=== PATIENT | male | born 1950 | race Caucasian/White ===

== ENCOUNTER → 2017-08-09 | Outpatient (CLI) | payer MEDICARE ==
--- NOTE | 2017-08-09 09:11 | RADIOLOGY REPORT (SQ) ---
EXAM DESCRIPTION: HAND BILATERAL 3 VIEWS COMPLETED DATE/TIME: 08/09/2017 8:51 am REASON FOR STUDY: PAIN IN RIGHT HAND/LT HAND COMPARISON: None. NUMBER OF VIEWS: Three views right hand. Three views left hand. LIMITATIONS: None. FINDINGS: Right hand: Normal bone density. Grossly normal carpal alignment. No fracture or bone l esion. No aggressive erosions or bulky osteophytes. Mild ulnar minus variance. Probable old fractu re, slight deformity of the 5th metacarpal. Minimal thumb base carpometacarpal and IP joint osteoart hritic change. No radiopaque foreign body. Left hand: Normal bone density. No fracture or bone lesion. Mild degenerative thumb base changes. No aggressive erosions or bulky osteophytes. Minimal ulnar minus variance. Grossly normal carpal a lignment. OTHER: No other findings. IMPRESSION: Degenerative appearing changes as above. No acute or suspicious findings. No gross gray dence of inflammatory arthropathy. TECHNICAL DOCUMENTATION: JOB ID: [id number]
== END ==
LOC: OD 08:34
PROVIDERS: ATTEND Family Medicine Geriatric Medicine
DX: M79.641 Pain in right hand (principal); M79.642 Pain in left hand; M19.041 Primary osteoarthritis, right hand

== ENCOUNTER → 2017-08-09 | Outpatient (CLI) | payer MEDICARE ==
[2017-08-09 12:30] LABS: ABSOLUTE EOSINOPHILS # (AUTO) 0.1 10^3/uL (0.0-0.6); ABSOLUTE LYMPHOCYTES (AUTO) 1.6 10^3/uL (0.5-4.7); ABSOLUTE MONOCYTES (AUTO) 0.6 10^3/uL (0.1-1.4); ABSOLUTE NEUT (AUTO) 5.4 10^3/uL (1.7-8.2); BASOPHILS % (AUTO) 0.6 % (0-2); EOSINOPHILS % (AUTO) 1.1 % (0-6); HEMATOCRIT 40.3 % (37.9-51.0); HEMOGLOBIN 13.6 g/dL (13.5-17.0); HGB HCT DIFFERENCE 0.5; LYMPHOCYTES % (AUTO) 20.7 % (13-45); MEAN CORPUSCULAR HEMOGLOBIN 29.6 pg (27.0-33.4); MEAN CORPUSCULAR HGB CONC 33.8 g/dL (32.0-36.0); MEAN CORPUSCULAR VOLUME 88 fl (80-97); MONOCYTES % (AUTO) 8.4 % (3-13); RED BLOOD COUNT 4.61 10^6/uL (4.35-5.55); RED CELL DISTRIBUTION WIDTH 14.6 % (11.5-14.0); SEGMENTED NEUTROPHILS % (AUTO) 69.2 % (42-78); WHITE BLOOD COUNT 7.7 10^3/uL (4.0-10.5)
--- NOTE | 2017-08-09 12:48 | RADIOLOGY REPORT (SQ) ---
EXAM DESCRIPTION: CHEST PA/LATERAL COMPLETED DATE/TIME: 08/09/2017 12:17 pm REASON FOR STUDY: PRE-OP COMPARISON: Two-view chest 09/16/2015 EXAM PARAMETERS: NUMBER OF VIEWS: two views TECHNIQUE: Digital Frontal and Lateral radiographic views of the chest acquired. RADIATION DOSE: NA LIMITATIONS: none FINDINGS: LUNGS AND PLEURA: Minimal bandlike atelectasis left lateral costophrenic sulcus. No fluffy alveolar infiltrates worrisome for edema or pneumonia. No pleural effusion. No pneumothorax. MEDIASTINUM AND HILAR STRUCTURES: No masses or contour abnormalities. HEART AND VASCULAR STRUCTURES: Heart normal size. No evidence for failure. BONES: No acute findings. HARDWARE: None in the chest. OTHER: No other significant finding. IMPRESSION: NO SIGNIFICANT RADIOGRAPHIC FINDING IN THE CHEST. TECHNICAL DOCUMENTATION: JOB ID: [id number] [employer]- All Rights Reserved
[2017-08-09 13:00] LABS: ALANINE AMINOTRANSFERASE 28 U/L (21-72); ALKALINE PHOSPHATASE 68 U/L (38-126); ANION GAP 10 (5-19); ASPARTATE AMINO TRANSFERASE 16 U/L (17-59); BILIRUBIN,DIRECT 0.5 mg/dL (0.0-0.4); BILIRUBIN,TOTAL 0.7 mg/dL (0.2-1.3); BLOOD UREA NITROGEN 22 mg/dL (7-20); CALCIUM 10.3 mg/dL (8.4-10.2); CARBON DIOXIDE 28 mmol/L (22-30); CHLORIDE 101 mmol/L (98-107); CREATININE RESULT 1.24 mg/dL (0.52-1.25); GLUCOSE 259 mg/dL (75-110); POTASSIUM 4.9 mmol/L (3.6-5.0); SODIUM 139.2 mmol/L (137-145); TOTAL PROTEIN 6.7 g/dL (6.3-8.2)
--- NOTE | 2017-08-10 09:07 | EKG REPORT ---
SEVERITY:- OTHERWISE NORMAL ECG - SINUS RHYTHM LOW VOLTAGE IN FRONTAL LEADS : Confirmed by: Xiomy Cronin MD 10-Aug-2017 09:07:04
== END ==
LOC: OD 11:20
PROVIDERS: ATTEND Surgery
DX: Z01.810 Encounter for preprocedural cardiovascular examination (principal); Z01.811 Encounter for preprocedural respiratory examination; Z01.812 Encounter for preprocedural laboratory examination; Z01.818 Encounter for other preprocedural examination; E66.01 Morbid (severe) obesity due to excess calories; K21.9 Gastro-esophageal reflux disease without esophagitis; E11.9 Type 2 diabetes mellitus without complications; G47.30 Sleep apnea, unspecified; E78.00 Pure hypercholesterolemia, unspecified
CPT/HCPCS: 36415; 71020; 80053; 84443; 85025; 93005; 93010

== ENCOUNTER → 2017-10-03 | Outpatient (CLI) | payer MEDICARE ==
[2017-10-03 10:15] LABS: ABSOLUTE EOSINOPHILS # (AUTO) 0.1 10^3/uL (0.0-0.6); ABSOLUTE LYMPHOCYTES (AUTO) 1.1 10^3/uL (0.5-4.7); ABSOLUTE MONOCYTES (AUTO) 0.5 10^3/uL (0.1-1.4); ABSOLUTE NEUT (AUTO) 3.6 10^3/uL (1.7-8.2); BASOPHILS % (AUTO) 0.5 % (0-2); EOSINOPHILS % (AUTO) 1.4 % (0-6); HEMATOCRIT 40.6 % (37.9-51.0); HEMOGLOBIN 13.3 g/dL (13.5-17.0); HGB HCT DIFFERENCE -0.7; LYMPHOCYTES % (AUTO) 20.5 % (13-45); MEAN CORPUSCULAR HEMOGLOBIN 29.8 pg (27.0-33.4); MEAN CORPUSCULAR HGB CONC 32.9 g/dL (32.0-36.0); MEAN CORPUSCULAR VOLUME 91 fl (80-97); RED BLOOD COUNT 4.47 10^6/uL (4.35-5.55); RED CELL DISTRIBUTION WIDTH 14.8 % (11.5-14.0); SEGMENTED NEUTROPHILS % (AUTO) 68.6 % (42-78); WHITE BLOOD COUNT 5.3 10^3/uL (4.0-10.5)
[2017-10-03 10:34] LABS: APPEARANCE,URINE CLOUDY; BILIRUBIN,URINE NEGATIVE (NEGATIVE); GLUCOSE, URINE >=500 mg/dL (NEGATIVE); KETONES,URINE NEGATIVE (NEGATIVE); LEUKOCYTE ESTERASE,URINE LARGE (NEGATIVE); NITRITE,URINE NEGATIVE (NEGATIVE); PROTEIN,URINE NEGATIVE (NEGATIVE); URINE SPECIFIC GRAVITY 1.017; UROBILINOGEN,URINE NEGATIVE mg/dL (<2.0)
--- NOTE | 2017-10-03 10:36 | RADIOLOGY REPORT (SQ) ---
EXAM DESCRIPTION: U/S ABDOMEN COMPLETE W/O DOP COMPLETED DATE/TIME: 10/03/2017 9:55 am REASON FOR STUDY: K76.0 FATTY (CHANGE OF) LIVER, NOT ELSEWHERE CLASSIFIED N18.3CHRONIC KIDNEY K76.0 FATTY (CHANGE OF) LIVER, NOT ELSEWHERE CLASSIFIED N18.3 CHRONIC KIDNEY DISEASE, STAGE 3 (MODERATE) COMPARISON: 02/07/2012 TECHNIQUE: Dynamic and static grayscale images acquired of the abdomen and recorded on PACS. Additio nal selected color Doppler and spectral images recorded. LIMITATIONS: None. FINDINGS: PANCREAS: The head and body of the pancreas were normal. The tail was obscured by gas. LIVER: 17.9 cm. Slightly increased echogenicity. LIVER VASCULATURE: Normal directional flow of the main portal vein and hepatic veins. GALLBLADDER: Surgically absent. ULTRASOUND-DETECTED VALADEZ'S SIGN: Not applicable. INTRAHEPATIC DUCTS AND COMMON DUCT: CBD and intrahepatic ducts normal caliber. No filling defects. INFERIOR VENA CAVA: Normal flow. AORTA: No aneurysm. RIGHT KIDNEY: Normal size, 12.3 cm. Normal echogenicity. No solid or suspicious masses. No hyd ronephrosis. No calcifications. LEFT KIDNEY: Normal size, 11.6 cm. Normal echogenicity. No solid or suspicious masses. The jc al pelvis is slightly prominent at 12 mm, but there is no true hydronephrosis. No calcifications. SPLEEN: Splenomegaly at 14.9 cm. No masses. PERITONEAL AND PLEURAL SPACES: No ascites or effusions. OTHER: No other significant finding. IMPRESSION: Fatty infiltration of the liver with mild splenomegaly. TECHNICAL DOCUMENTATION: JOB ID: [id number] [employer]- All Rights Reserved
[2017-10-03 10:43] LABS: ALANINE AMINOTRANSFERASE 27 U/L (21-72); ALBUMIN 3.9 g/dL (3.5-5.0); ALKALINE PHOSPHATASE 53 U/L (38-126); ANION GAP 11 (5-19); ASPARTATE AMINO TRANSFERASE 14 U/L (17-59); BILIRUBIN,DIRECT 0.3 mg/dL (0.0-0.4); BILIRUBIN,TOTAL 0.6 mg/dL (0.2-1.3); BLOOD UREA NITROGEN 27 mg/dL (7-20); CALCIUM 9.5 mg/dL (8.4-10.2); CARBON DIOXIDE 30 mmol/L (22-30); CHLORIDE 102 mmol/L (98-107); CREATININE RESULT 1.17 mg/dL (0.52-1.25); GLUCOSE 207 mg/dL (75-110); POTASSIUM 4.6 mmol/L (3.6-5.0); SODIUM 142.9 mmol/L (137-145); TOTAL PROTEIN 6.2 g/dL (6.3-8.2)
[2017-10-03 10:57] LABS: URINE CREATININE 110.2 mg/dL (22-328); URINE PROTEIN 15.2 mg/dL (<12)
== END ==
LOC: RAD 09:06
PROVIDERS: ATTEND Internal Medicine Nephrology
DX: E11.22 Type 2 diabetes mellitus with diabetic chronic kidney disease (principal); I12.9 Hypertensive chronic kidney disease with stage 1 through stage 4 chronic kidney disease, or unspecified chronic kidney disease; N18.3 Chronic kidney disease, stage 3 (moderate); K76.0 Fatty (change of) liver, not elsewhere classified; N39.0 Urinary tract infection, site not specified
CPT/HCPCS: 36415; 76700; 80053; 81001; 82570; 84156; 85025; 87086; 87088

== ENCOUNTER → 2017-11-15 | Outpatient (CLI) | payer MEDICARE ==
--- NOTE | 2017-11-15 13:33 | EKG REPORT ---
SEVERITY:- ABNORMAL ECG - SINUS RHYTHM FIRST DEGREE AV BLOCK NONSPECIFIC INTRAVENTRICULAR CONDUCTION DELAY : Confirmed by: Nino Galloway MD 15-Nov-2017 13:32:36
[2017-11-15 13:34] LABS: ABSOLUTE EOSINOPHILS # (AUTO) 0.2 10^3/uL (0.0-0.6); ABSOLUTE LYMPHOCYTES (AUTO) 1.4 10^3/uL (0.5-4.7); ABSOLUTE MONOCYTES (AUTO) 0.5 10^3/uL (0.1-1.4); ABSOLUTE NEUT (AUTO) 3.9 10^3/uL (1.7-8.2); BASOPHILS % (AUTO) 0.5 % (0-2); EOSINOPHILS % (AUTO) 2.6 % (0-6); HEMATOCRIT 40.7 % (37.9-51.0); HEMOGLOBIN 13.5 g/dL (13.5-17.0); LYMPHOCYTES % (AUTO) 23.7 % (13-45); MEAN CORPUSCULAR HEMOGLOBIN 29.5 pg (27.0-33.4); MEAN CORPUSCULAR HGB CONC 33.2 g/dL (32.0-36.0); MEAN CORPUSCULAR VOLUME 89 fl (80-97); MONOCYTES % (AUTO) 8.9 % (3-13); PLATELET COUNT 307 10^3/uL (150-450); RED BLOOD COUNT 4.58 10^6/uL (4.35-5.55); RED CELL DISTRIBUTION WIDTH 13.9 % (11.5-14.0); SEGMENTED NEUTROPHILS % (AUTO) 64.3 % (42-78); TOTAL CELLS COUNTED % (AUTO) 100 %; WHITE BLOOD COUNT 6.1 10^3/uL (4.0-10.5)
[2017-11-15 14:04] LABS: ALANINE AMINOTRANSFERASE 21 U/L (21-72); ALBUMIN 4.1 g/dL (3.5-5.0); ALKALINE PHOSPHATASE 59 U/L (38-126); ANION GAP 11 (5-19); ASPARTATE AMINO TRANSFERASE 14 U/L (17-59); BILIRUBIN,DIRECT 0.2 mg/dL (0.0-0.4); BILIRUBIN,TOTAL 0.3 mg/dL (0.2-1.3); BLOOD UREA NITROGEN 30 mg/dL (7-20); CALCIUM 10.6 mg/dL (8.4-10.2); CARBON DIOXIDE 32 mmol/L (22-30); CHLORIDE 102 mmol/L (98-107); GLUCOSE 79 mg/dL (75-110); POTASSIUM 4.7 mmol/L (3.6-5.0); SODIUM 145.1 mmol/L (137-145); TOTAL PROTEIN 6.6 g/dL (6.3-8.2)
== END ==
LOC: OD 12:23
PROVIDERS: ATTEND Surgery
DX: Z01.810 Encounter for preprocedural cardiovascular examination (principal); Z01.811 Encounter for preprocedural respiratory examination; Z01.812 Encounter for preprocedural laboratory examination; Z01.818 Encounter for other preprocedural examination; E66.01 Morbid (severe) obesity due to excess calories
CPT/HCPCS: 36415; 80053; 85025; 93005; 93010

== ENCOUNTER → 2017-11-21 | Outpatient (CLI) | payer MEDICARE ==
[2017-11-21 17:38] LABS: ANION GAP 15 (5-19); BLOOD UREA NITROGEN 41 mg/dL (7-20); CALCIUM 9.8 mg/dL (8.4-10.2); CARBON DIOXIDE 28 mmol/L (22-30); CHLORIDE 97 mmol/L (98-107); GLUCOSE 183 mg/dL (75-110); POTASSIUM 3.9 mmol/L (3.6-5.0)
== END ==
LOC: OD 16:47
PROVIDERS: ATTEND Family Medicine Geriatric Medicine
DX: E83.52 Hypercalcemia (principal); Z79.899 Other long term (current) drug therapy
CPT/HCPCS: 36415; 80048; 83970

== ENCOUNTER → 2017-12-13 | Outpatient (CLI) | payer MEDICARE, OTHER ==
[2017-12-13 12:00] LABS: AMORPHOUS SEDIMENT,URINE TRACE /HPF; APPEARANCE,URINE CLOUDY; BILIRUBIN,URINE NEGATIVE (NEGATIVE); COLOR,URINE YELLOW; GLUCOSE, URINE 50 mg/dL (NEGATIVE); KETONES,URINE TRACE mg/dL (NEGATIVE); LEUKOCYTE ESTERASE,URINE NEGATIVE (NEGATIVE); NITRITE,URINE NEGATIVE (NEGATIVE); PROTEIN,URINE 30 mg/dL (NEGATIVE); URINE SPECIFIC GRAVITY 1.014; UROBILINOGEN,URINE NEGATIVE mg/dL (<2.0)
[2017-12-13 12:23] LABS: ANION GAP 13 (5-19); BLOOD UREA NITROGEN 15 mg/dL (7-20); CALCIUM 10.3 mg/dL (8.4-10.2); CARBON DIOXIDE 32 mmol/L (22-30); CHLORIDE 99 mmol/L (98-107); GLUCOSE 100 mg/dL (75-110); POTASSIUM 4.6 mmol/L (3.6-5.0)
== END ==
LOC: OD 11:08
PROVIDERS: ATTEND Internal Medicine Nephrology
DX: I12.9 Hypertensive chronic kidney disease with stage 1 through stage 4 chronic kidney disease, or unspecified chronic kidney disease (principal); N18.3 Chronic kidney disease, stage 3 (moderate); E11.9 Type 2 diabetes mellitus without complications; R60.9 Edema, unspecified
CPT/HCPCS: 36415; 80048; 81001

== ENCOUNTER → 2018-02-23 | Outpatient (CLI) | payer MEDICARE, OTHER ==
[2018-02-23 11:15] LABS: ANION GAP 10 (5-19); BLOOD UREA NITROGEN 19 mg/dL (7-20); CALCIUM 9.7 mg/dL (8.4-10.2); CARBON DIOXIDE 33 mmol/L (22-30); CHLORIDE 103 mmol/L (98-107); GLUCOSE 160 mg/dL (75-110); POTASSIUM 4.6 mmol/L (3.6-5.0); SODIUM 145.6 mmol/L (137-145)
[2018-02-23 11:16] LABS: ABSOLUTE EOSINOPHILS # (AUTO) 0.1 10^3/uL (0.0-0.6); ABSOLUTE LYMPHOCYTES (AUTO) 1.7 10^3/uL (0.5-4.7); ABSOLUTE MONOCYTES (AUTO) 0.6 10^3/uL (0.1-1.4); ABSOLUTE NEUT (AUTO) 3.4 10^3/uL (1.7-8.2); BASOPHILS % (AUTO) 0.6 % (0-2); EOSINOPHILS % (AUTO) 1.7 % (0-6); HEMOGLOBIN 12.8 g/dL (13.5-17.0); LYMPHOCYTES % (AUTO) 29.5 % (13-45); MEAN CORPUSCULAR HEMOGLOBIN 29.7 pg (27.0-33.4); MEAN CORPUSCULAR HGB CONC 32.7 g/dL (32.0-36.0); MEAN CORPUSCULAR VOLUME 91 fl (80-97); MONOCYTES % (AUTO) 9.6 % (3-13); PLATELET COUNT 224 10^3/uL (150-450); SEGMENTED NEUTROPHILS % (AUTO) 58.6 % (42-78); TOTAL CELLS COUNTED % (AUTO) 100 %; WHITE BLOOD COUNT 5.7 10^3/uL (4.0-10.5)
== END ==
LOC: OD 10:01
PROVIDERS: ATTEND Family Medicine Geriatric Medicine
DX: E11.21 Type 2 diabetes mellitus with diabetic nephropathy (principal); N40.1 Benign prostatic hyperplasia with lower urinary tract symptoms; R51 Headache
CPT/HCPCS: 36415; 80048; 84153; 85025

== ENCOUNTER → 2018-03-22 | Outpatient (CLI) | payer MEDICARE, OTHER ==
[2018-03-22 09:21] LABS: HEMATOCRIT 39.2 % (37.9-51.0); HEMOGLOBIN 12.9 g/dL (13.5-17.0); MEAN CORPUSCULAR HEMOGLOBIN 29.6 pg (27.0-33.4); MEAN CORPUSCULAR VOLUME 90 fl (80-97); PLATELET COUNT 256 10^3/uL (150-450); RED BLOOD COUNT 4.38 10^6/uL (4.35-5.55); RED CELL DISTRIBUTION WIDTH 13.9 % (11.5-14.0); WHITE BLOOD COUNT 5.1 10^3/uL (4.0-10.5)
[2018-03-22 09:37] LABS: APPEARANCE,URINE CLEAR; BILIRUBIN,URINE NEGATIVE (NEGATIVE); COLOR,URINE YELLOW; GLUCOSE, URINE NEGATIVE (NEGATIVE); KETONES,URINE NEGATIVE (NEGATIVE); LEUKOCYTE ESTERASE,URINE NEGATIVE (NEGATIVE); NITRITE,URINE NEGATIVE (NEGATIVE); PROTEIN,URINE NEGATIVE (NEGATIVE); URINE SPECIFIC GRAVITY 1.018; UROBILINOGEN,URINE NEGATIVE mg/dL (<2.0)
[2018-03-22 09:49] LABS: ANION GAP 9 (5-19); BLOOD UREA NITROGEN 23 mg/dL (7-20); CALCIUM 9.6 mg/dL (8.4-10.2); CARBON DIOXIDE 31 mmol/L (22-30); CHLORIDE 105 mmol/L (98-107); GLUCOSE 158 mg/dL (75-110); POTASSIUM 4.5 mmol/L (3.6-5.0); SODIUM 144.5 mmol/L (137-145)
[2018-03-22 09:50] LABS: UR PRO/CREAT RATIO RESULT 0.1 mg/mg (0.0-0.2); URINE CREATININE 122.2 mg/dL (22-328); URINE PROTEIN 9.3 mg/dL (<12)
== END ==
LOC: OD 08:42
PROVIDERS: ATTEND Internal Medicine Nephrology
DX: I12.9 Hypertensive chronic kidney disease with stage 1 through stage 4 chronic kidney disease, or unspecified chronic kidney disease (principal); N18.2 Chronic kidney disease, stage 2 (mild); R80.9 Proteinuria, unspecified; E11.9 Type 2 diabetes mellitus without complications
CPT/HCPCS: 36415; 80048; 81001; 82570; 83735; 84156; 85027

== ENCOUNTER → 2018-05-24 | Outpatient (CLI) | payer MEDICARE, OTHER ==
[2018-05-24 09:37] LABS: ABSOLUTE EOSINOPHILS # (AUTO) 0.1 10^3/uL (0.0-0.6); ABSOLUTE LYMPHOCYTES (AUTO) 1.5 10^3/uL (0.5-4.7); ABSOLUTE MONOCYTES (AUTO) 0.5 10^3/uL (0.1-1.4); ABSOLUTE NEUT (AUTO) 2.8 10^3/uL (1.7-8.2); BASOPHILS % (AUTO) 0.5 % (0-2); EOSINOPHILS % (AUTO) 1.4 % (0-6); HEMATOCRIT 37.2 % (37.9-51.0); HEMOGLOBIN 12.5 g/dL (13.5-17.0); MEAN CORPUSCULAR HEMOGLOBIN 29.6 pg (27.0-33.4); MEAN CORPUSCULAR HGB CONC 33.5 g/dL (32.0-36.0); MEAN CORPUSCULAR VOLUME 88 fl (80-97); MONOCYTES % (AUTO) 9.9 % (3-13); PLATELET COUNT 238 10^3/uL (150-450); RED BLOOD COUNT 4.21 10^6/uL (4.35-5.55); RED CELL DISTRIBUTION WIDTH 13.5 % (11.5-14.0); SEGMENTED NEUTROPHILS % (AUTO) 57.2 % (42-78); TOTAL CELLS COUNTED % (AUTO) 100 %; WHITE BLOOD COUNT 4.8 10^3/uL (4.0-10.5)
[2018-05-24 09:57] LABS: ALANINE AMINOTRANSFERASE 18 U/L (21-72); ANION GAP 9 (5-19); BLOOD UREA NITROGEN 12 mg/dL (7-20); CALCIUM 9.1 mg/dL (8.4-10.2); CARBON DIOXIDE 28 mmol/L (22-30); CHLORIDE 107 mmol/L (98-107); CHOLESTEROL 104.87 mg/dL (0-200); GLUCOSE 160 mg/dL (75-110); POTASSIUM 4.8 mmol/L (3.6-5.0); SODIUM 144.4 mmol/L (137-145); TRIGLYCERIDES 115 mg/dL (<150)
[2018-05-24 10:08] LABS: DIRECT LDL 48 mg/dL (<100)
[2018-05-25 11:40] LABS: CREATININE URINE 109.2 mg/dL (Not Estab.); MICROALBUMIN URINE 13.1 ug/mL (Not Estab.)
== END ==
LOC: OD 08:09
PROVIDERS: ATTEND Family Medicine Geriatric Medicine
DX: E11.21 Type 2 diabetes mellitus with diabetic nephropathy (principal); E78.5 Hyperlipidemia, unspecified; D64.9 Anemia, unspecified; I10 Essential (primary) hypertension; Z79.899 Other long term (current) drug therapy
CPT/HCPCS: 80048; 80061; 82043; 82570; 83036; 84460; 85025

== ENCOUNTER → 2018-06-21 | Outpatient (CLI) | payer MEDICARE, OTHER ==
[2018-06-21 11:22] LABS: HEMATOCRIT 41.1 % (37.9-51.0); HEMOGLOBIN 13.6 g/dL (13.5-17.0); MEAN CORPUSCULAR HEMOGLOBIN 29.3 pg (27.0-33.4); MEAN CORPUSCULAR HGB CONC 33.1 g/dL (32.0-36.0); MEAN CORPUSCULAR VOLUME 88 fl (80-97); PLATELET COUNT 249 10^3/uL (150-450); RED BLOOD COUNT 4.65 10^6/uL (4.35-5.55); RED CELL DISTRIBUTION WIDTH 13.9 % (11.5-14.0); WHITE BLOOD COUNT 5.1 10^3/uL (4.0-10.5)
[2018-06-21 11:29] LABS: ABSOLUTE RETICS # 0.033 10^6/uL (0.028-0.122); RETICULOCYTE COUNT (AUTO) 0.71 % (0.66-2.85)
[2018-06-21 11:41] LABS: IRON 34.1 ug/dL (49-181)
[2018-06-21 11:43] LABS: ANION GAP 13 (5-19); BLOOD UREA NITROGEN 24 mg/dL (7-20); CALCIUM 9.5 mg/dL (8.4-10.2); CARBON DIOXIDE 31 mmol/L (22-30); CHLORIDE 103 mmol/L (98-107); GLUCOSE 60 mg/dL (75-110); POTASSIUM 4.1 mmol/L (3.6-5.0); SODIUM 146.9 mmol/L (137-145)
[2018-06-21 11:51] LABS: APPEARANCE,URINE CLEAR; BILIRUBIN,URINE NEGATIVE (NEGATIVE); COLOR,URINE STRAW; GLUCOSE, URINE NEGATIVE (NEGATIVE); KETONES,URINE NEGATIVE (NEGATIVE); LEUKOCYTE ESTERASE,URINE NEGATIVE (NEGATIVE); NITRITE,URINE NEGATIVE (NEGATIVE); PROTEIN,URINE NEGATIVE (NEGATIVE); URINE SPECIFIC GRAVITY 1.009; UROBILINOGEN,URINE NEGATIVE mg/dL (<2.0)
[2018-06-22 12:39] LABS: CREATININE URINE 28.2 mg/dL (Not Estab.); MICROALBUMIN URINE 5.6 ug/mL (Not Estab.)
[2018-06-22 15:38] LABS: FOLATE HEMOLYSATE 315.4 ng/mL (Not Estab.)
== END ==
LOC: LAB 10:07
PROVIDERS: ATTEND Internal Medicine
DX: E11.22 Type 2 diabetes mellitus with diabetic chronic kidney disease (principal); I12.9 Hypertensive chronic kidney disease with stage 1 through stage 4 chronic kidney disease, or unspecified chronic kidney disease; N18.2 Chronic kidney disease, stage 2 (mild)
CPT/HCPCS: 36415; 80048; 81001; 82043; 82570; 82607; 82668; 82747; 83540; 85027; 85045

== ENCOUNTER → 2018-08-28 | Outpatient (CLI) | payer MEDICARE, OTHER ==
[2018-08-28 12:14] LABS: ANION GAP 7 (5-19); BLOOD UREA NITROGEN 23 mg/dL (7-20); CALCIUM 11.1 mg/dL (8.4-10.2); CARBON DIOXIDE 32 mmol/L (22-30); CHLORIDE 103 mmol/L (98-107); CHOLESTEROL 115.15 mg/dL (0-200); GLUCOSE 167 mg/dL (75-110); POTASSIUM 4.6 mmol/L (3.6-5.0); SODIUM 142.4 mmol/L (137-145); TRIGLYCERIDES 134 mg/dL (<150)
[2018-08-28 12:27] LABS: DIRECT LDL 39 mg/dL (<100)
== END ==
LOC: OD 09:52
PROVIDERS: ATTEND Internal Medicine
DX: E11.9 Type 2 diabetes mellitus without complications (principal); E78.5 Hyperlipidemia, unspecified; N19 Unspecified kidney failure; D64.9 Anemia, unspecified
CPT/HCPCS: 36415; 80048; 80061; 82043; 82570; 83036

== ENCOUNTER → 2018-11-02 | Outpatient (CLI) | payer MEDICARE, OTHER ==
[2018-11-02 08:46] LABS: ABSOLUTE EOSINOPHILS # (AUTO) 0.1 10^3/uL (0.0-0.6); ABSOLUTE LYMPHOCYTES (AUTO) 1.7 10^3/uL (0.5-4.7); ABSOLUTE MONOCYTES (AUTO) 0.4 10^3/uL (0.1-1.4); ABSOLUTE NEUT (AUTO) 2.3 10^3/uL (1.7-8.2); BASOPHILS % (AUTO) 0.6 % (0-2); EOSINOPHILS % (AUTO) 1.8 % (0-6); HEMATOCRIT 38.6 % (37.9-51.0); LYMPHOCYTES % (AUTO) 37.8 % (13-45); MEAN CORPUSCULAR HEMOGLOBIN 30.1 pg (27.0-33.4); MEAN CORPUSCULAR HGB CONC 33.7 g/dL (32.0-36.0); MEAN CORPUSCULAR VOLUME 89 fl (80-97); MONOCYTES % (AUTO) 9.1 % (3-13); PLATELET COUNT 237 10^3/uL (150-450); RED BLOOD COUNT 4.32 10^6/uL (4.35-5.55); RED CELL DISTRIBUTION WIDTH 13.5 % (11.5-14.0); SEGMENTED NEUTROPHILS % (AUTO) 50.7 % (42-78); TOTAL CELLS COUNTED % (AUTO) 100 %; WHITE BLOOD COUNT 4.5 10^3/uL (4.0-10.5)
[2018-11-02 09:08] LABS: ALANINE AMINOTRANSFERASE 13 U/L (21-72); ALBUMIN 3.5 g/dL (3.5-5.0); ALKALINE PHOSPHATASE 50 U/L (38-126); ANION GAP 5 (5-19); ASPARTATE AMINO TRANSFERASE 13 U/L (17-59); BILIRUBIN,DIRECT 0.2 mg/dL (0.0-0.4); BILIRUBIN,TOTAL 0.4 mg/dL (0.2-1.3); BLOOD UREA NITROGEN 19 mg/dL (7-20); CALCIUM 9.6 mg/dL (8.4-10.2); CARBON DIOXIDE 33 mmol/L (22-30); CHLORIDE 106 mmol/L (98-107); CHOLESTEROL 133.06 mg/dL (0-200); GLUCOSE 63 mg/dL (75-110); POTASSIUM 4.3 mmol/L (3.6-5.0); SODIUM 144.1 mmol/L (137-145); TRIGLYCERIDES 87 mg/dL (<150)
[2018-11-02 09:19] LABS: DIRECT LDL 84 mg/dL (<100)
== END ==
LOC: OD 07:57
PROVIDERS: ATTEND Internal Medicine
DX: D64.9 Anemia, unspecified (principal); E11.8 Type 2 diabetes mellitus with unspecified complications; E55.9 Vitamin D deficiency, unspecified; E87.6 Hypokalemia; R10.9 Unspecified abdominal pain; E53.8 Deficiency of other specified B group vitamins; E78.5 Hyperlipidemia, unspecified
CPT/HCPCS: 36415; 80053; 80061; 82140; 82607; 82746; 83036; 84443; 85025

== ENCOUNTER → 2019-03-07 | Outpatient (CLI) | payer MEDICARE, OTHER ==
[2019-03-07 10:14] LABS: ANION GAP 10 (5-19); BLOOD UREA NITROGEN 18 mg/dL (7-20); CALCIUM 10.1 mg/dL (8.4-10.2); CARBON DIOXIDE 30 mmol/L (22-30); CHLORIDE 107 mmol/L (98-107); POTASSIUM 4.2 mmol/L (3.6-5.0); SODIUM 146.6 mmol/L (137-145); TRIGLYCERIDES 87 mg/dL (<150)
[2019-03-07 10:25] LABS: DIRECT LDL 47 mg/dL (<100)
[2019-03-07 10:38] LABS: GLUCOSE 38 mg/dL (75-110)
== END ==
LOC: OD 08:50
PROVIDERS: ATTEND Internal Medicine
DX: E13.9 Other specified diabetes mellitus without complications (principal); E78.5 Hyperlipidemia, unspecified; N19 Unspecified kidney failure
CPT/HCPCS: 36415; 80048; 80061; 83036

== ENCOUNTER → 2019-03-14 | Outpatient (CLI) | payer MEDICARE, OTHER ==
--- NOTE | 2019-03-14 12:42 | RADIOLOGY REPORT (SQ) ---
EXAM DESCRIPTION: ANKLE RIGHT COMPLETE COMPLETED DATE/TIME: 03/14/2019 12:19 pm REASON FOR STUDY: RT ANKLE DJD M25.571 PAIN IN RIGHT ANKLE AND JOINTS OF RIGHT FOOT COMPARISON: None. NUMBER OF VIEWS: Three views. TECHNIQUE: AP, lateral, and oblique radiographic images acquired of the right ankle. LIMITATIONS: None. FINDINGS: MINERALIZATION: Normal. BONES: No acute fracture or dislocation. No worrisome bone lesions. Minimal bony spurring along the posterior edge of the distal tibia at the tibiotalar joint. Tiny plantar and dorsal calcaneal spurs . JOINTS: No effusions. SOFT TISSUES: Anterior ankle soft tissue swelling. No foreign body. OTHER: No other significant finding. IMPRESSION: Anterior ankle soft tissue swelling. No acute bony findings TECHNICAL DOCUMENTATION: JOB ID: [id number] [employer]- All Rights Reserved Reading location - IP/workstation name: [email or web address]
== END ==
LOC: OD 12:10
PROVIDERS: ATTEND Internal Medicine
DX: M25.571 Pain in right ankle and joints of right foot (principal)

== ENCOUNTER → 2019-07-24 | Outpatient (CLI) | payer MEDICARE, OTHER ==
[2019-07-24 10:20] LABS: ALBUMIN 3.9 g/dL (3.5-5.0); ALKALINE PHOSPHATASE 51 U/L (38-126); ANION GAP 8 (5-19); ASPARTATE AMINO TRANSFERASE 12 U/L (17-59); BILIRUBIN,DIRECT 0.2 mg/dL (0.0-0.4); BILIRUBIN,TOTAL 0.5 mg/dL (0.2-1.3); BLOOD UREA NITROGEN 16 mg/dL (7-20); CALCIUM 9.6 mg/dL (8.4-10.2); CARBON DIOXIDE 31 mmol/L (22-30); CHLORIDE 103 mmol/L (98-107); GLUCOSE 137 mg/dL (75-110); POTASSIUM 4.7 mmol/L (3.6-5.0); TOTAL PROTEIN 6.3 g/dL (6.3-8.2)
== END ==
LOC: OD 09:06
PROVIDERS: ATTEND Family Medicine
DX: E11.21 Type 2 diabetes mellitus with diabetic nephropathy (principal)
CPT/HCPCS: 36415; 80053; 83036

== ENCOUNTER 2019-11-28 05:24 | Day surgery (SDC) | payer MEDICARE, OTHER ==
[2019-11-21 10:11] LABS: ABSOLUTE EOSINOPHILS # (AUTO) 0.1 10^3/uL (0.0-0.6); ABSOLUTE LYMPHOCYTES (AUTO) 1.1 10^3/uL (0.5-4.7); ABSOLUTE MONOCYTES (AUTO) 0.4 10^3/uL (0.1-1.4); ABSOLUTE NEUT (AUTO) 2.1 10^3/uL (1.7-8.2); BASOPHILS % (AUTO) 0.7 % (0-2); EOSINOPHILS % (AUTO) 1.5 % (0-6); HEMATOCRIT 39.7 % (37.9-51.0); HEMOGLOBIN 13.5 g/dL (13.5-17.0); LYMPHOCYTES % (AUTO) 30.7 % (13-45); MEAN CORPUSCULAR HEMOGLOBIN 30.1 pg (27.0-33.4); MEAN CORPUSCULAR VOLUME 89 fl (80-97); MONOCYTES % (AUTO) 10.9 % (3-13); PLATELET COUNT 233 10^3/uL (150-450); RED BLOOD COUNT 4.48 10^6/uL (4.35-5.55); RED CELL DISTRIBUTION WIDTH 13.9 % (11.5-14.0); SEGMENTED NEUTROPHILS % (AUTO) 56.2 % (42-78); TOTAL CELLS COUNTED % (AUTO) 100 %; WHITE BLOOD COUNT 3.7 10^3/uL (4.0-10.5)
[2019-11-21 10:47] LABS: ANION GAP 8 (5-19); BLOOD UREA NITROGEN 21 mg/dL (7-20); CALCIUM 9.4 mg/dL (8.4-10.2); CARBON DIOXIDE 33 mmol/L (22-30); CHLORIDE 100 mmol/L (98-107); GLUCOSE 144 mg/dL (75-110); POTASSIUM 5.2 mmol/L (3.6-5.0)
[~2019-11-28 05:24] MED LIST: CEFAZOLIN SODIUM 2 GM in DEXTROSE 5%-WATER 100 ML IV PRN; NORMAL SALINE 1000 ML 1,000 ML IV PRN
[2019-11-28] MEDS ORDERED: MIDAZOLAM 2 MG/2 ML INJ ONE (06:52)
[2019-11-28] MEDS ORDERED: HYDROMORPHONE HCL INJ/PF 2 MG/ML AMPULE ONE (06:52)
[2019-11-28] MEDS ORDERED: FENTANYL CITRATE INJ/PF 100 MCG/2 ML AMPUL ONE (06:52)
[2019-11-28] MEDS ORDERED: PROPOFOL INJ 200 MG/20 ML VIAL IV ONE (06:53)
[2019-11-28] MEDS ORDERED: DIPHENHYDRAMINE HCL 50 MG/ML VIAL IV PRN (06:59)
[2019-11-28] MEDS ORDERED: PROMETHAZINE HCL INJ 25 MG/1 ML VIAL IV PRN ×2 (06:59)
[2019-11-28] MEDS ORDERED: MEPERIDINE HCL/PF INJ 25 MG/1 ML DISP.SYRIN IV PRN (06:59)
[2019-11-28] MEDS ORDERED: FENTANYL CITRATE INJ/PF 100 MCG/2 ML AMPUL IV PRN ×3 (06:59)
[2019-11-28] MEDS ORDERED: CEFAZOLIN INJ 1 GM VIAL ONE (11:11)
[2019-11-28] MEDS ORDERED: NITROGLYCERIN 2% OINTMENT 1 GM PACKET TP ONE (11:15)
--- NOTE | 2019-11-28 12:11 | Operative Report ---
Operative Report DATE OF SURGERY: 11/28/19 PREOPERATIVE DIAGNOSIS: Panniculitis POSTOPERATIVE DIAGNOSIS: 1 panniculitis. 2 diastases recti OPERATION: 1 panniculectomy. 2 repair of diastases recti SURGEON: WILEY ARORA ANESTHESIA: GA TISSUE REMOVED OR ALTERED: Abdominal pannus weight 7 pounds 8 ounces ESTIMATED BLOOD LOSS: 100 cc INTRAOPERATIVE FINDINGS: Diastases recti with asymmetric pull to right side PROCEDURE: Indication: The patient is a 68-year-old male who was referred by Dr. Kasper for consultation for panniculectomy. The patient was status post gastric sleeve on 11/29/2017 and reports to have lost 92 pounds since surgery. He reports that his weight has been stable for greater than 1 year. He presented with complaints of occasional persistent rashes under his abdominal pannus which he treated with prescription topical ointment and subsequently with oral antibiotics; he also has a history of chronic problem with UTIs as the pannus hung over his over his genital area. He has required multiple courses of antibiotics for these recurrent UTIs. he states that he has to shower 3-4 times a day to keep the area clean. His medical history was significant for a previous gastric surgery in 1989 for gastric ulcers and a cholecystectomy. He denied smoking. Procedure: Prior to bringing the patient to the operating room and the patient in the upright position his midline was marked, he was then placed in the supine position and the planned lower abdominal incision marked. Once markings been completed the patient was brought to the operating room placed in the supine position and general anesthesia induced. After induction of general anesthesia the patient's torso was prepped with Betadine and draped in a sterile fashion. Initially incision was made along the lower abdominal marking this was taken down through the skin into the underlying subcutaneous tissue, using blunt dissection and electrocautery the subcutaneous tissue, Reginaldo's fascia, the deeper fatty layer were all divided to expose the rectus fascia. Once visualized dissection was begun superiorly to the level of the umbilicus. The umbilical skin was incised and the umbilical stalk carefully dissected to maintain adequate tissue for maintenance of blood supply. Dissection then continued to the costal margin laterally and the xiphoid medially, throughout this dissection bleeding points were electrocauterized. Once the abdominal flap was raised examination of the rectus fascia showed that there was an obvious weakness vicente trally below the umbilicus and that it had been apparently been pulled to the right side giving the patient's abdominal contour an asymmetric appearance. To correct this and repair the diastasis repair of the rectus fascia was undertaken. this was done using using interrupted 0 Ethibond sutures from the pubic symphysis to the xiphoid followed by a running suture of as a second laye. Once completed the patient was placed in a slightly flexed position the skin pulled inferiorly and marked. Excess skin and fatty tissue excised total weight of excision was 7 pounds 8 ounces. The incision was then approximated using portillo and approximated with minimal tension. Prior to closing the lower abdominal incision the new position of the umbilicus was marked, skin excised and the umbilicus brought into the operative field the umbilicus appeared viable this was secured using interrupted 3-0 Monocryl in the deep dermal layer and 4-0 Monocryl in the skin in a subcuticular fashion. Prior to closing the lower abdominal incision two 15 mm round Cortez drains were placed through separate suprapubic stab incisions and secured using 2-0 nylon suture. The lower abdominal incision was then closed in layers using 3-0 Monocryl in the deep and deep dermal layer and 4-0 Monocryl in the skin in a subcuticular fashion. Once all incisions were closed the areas were cleaned and dried Dermabond bulky dressing and compression garment placed the patient was then awoken from his general anesthetic without difficulty and brought to the recovery room in stable condition sponge and needle counts were noted to be correct prior to leaving the operating room
--- NOTE | 2019-11-28 12:30 | Discharge Summary ---
Discharge Summary (SDC) - Discharge Final Diagnosis: Panniculitis Diastasis Recti Date of Surgery: 11/28/19 Condition: Fair Referrals: LILIA GONZALEZ MD [Primary Care Provider] - Discharge Diet: As Tolerated Discharge Activity: No Driving, No Lifting Over 10 Pounds, No Lifting/Push/Pulling, Walk Frequently Home Care Assistance: Provided by Family Report the Following to Your Physician Immediately: Fever over 101 Degrees
[2019-11-28] MEDS ORDERED: ONDANSETRON 4 MG TAB.RAPDIS SL PRN (13:01)
[2019-11-28] MEDS ORDERED: OXYCODONE-ACETAMINOPHEN 5-325 MG TABLET ONE (13:10)
[2019-11-28] MEDS ORDERED: OXYCODONE-ACETAMINOPHEN 5-325 MG TABLET PO PRN ×2 (13:28→13:29)
[2019-11-28] MEDS ORDERED: LIDOCAINE 2% INJ-PF (20 MG/ML) 2 ML AMPUL ONE (14:10)
[2019-11-28] MEDS ORDERED: SUCCINYLCHOLINE CHLORIDE INJ 200 MG/10 ML VIAL ONE (14:10)
[2019-11-28] MEDS ORDERED: KETOROLAC TROMETHAMINE 60 MG/2 ML SDV ONE (14:10)
[2019-11-28] MEDS ORDERED: NEOSTIGMINE METHYLSULFATE 10 MG/10 ML VIAL ONE (14:10)
[2019-11-28] MEDS ORDERED: DEXAMETHASONE SOD PHOSPHATE INJ 4 MG/1 ML VIAL ONE (14:10)
[2019-11-28] MEDS ORDERED: ROCURONIUM BROMIDE INJ 50 MG/5 ML VIAL IV ONE (14:10)
[2019-11-28] MEDS ORDERED: GLYCOPYRROLATE 1 MG/5 ML VIAL ONE (14:10)
[2019-11-28] MEDS ORDERED: ONDANSETRON HCL INJ/PF 4 MG/2 ML SDV ONE (14:10)
[2019-11-28 15:04] VITALS: BP 109/58
== END 2019-11-28 14:44 | disposition home or self-care (01) ==
LOC: OROUT 05:24
PROVIDERS: ATTEND Specialist
DX: M79.3 Panniculitis, unspecified (principal); M62.08 Separation of muscle (nontraumatic), other site; Z79.899 Other long term (current) drug therapy; Z79.4 Long term (current) use of insulin; Z79.84 Long term (current) use of oral hypoglycemic drugs
CPT/HCPCS: 36415 ×2; 82962; 84132; 85025; 80048; 00802; 15830; J2250; A9270 ×2; J0690; J3490 ×3; J1100; J1885; J3010; J2710; J1170; J0330; J2405; J7060; J2704; 802

== ENCOUNTER 2019-11-28 21:40 | Observation (INO) | payer MEDICARE, OTHER ==
--- NOTE | 2019-11-28 23:54 | ER Document Report ---
ED Medical Screen (RME) - General Chief Complaint: Post Surgical Bleeding Stated Complaint: BLEEDING Time Seen by Provider: 11/28/19 23:53 Primary Care Provider: LILIA GONZALEZ MD [Primary Care Provider] - Follow up as needed Notes: 68-year-old male presents for postop bleeding that started approximately 4 hours ago. Patient had a panniculectomy done this morning by Dr. Jones. Patient states he is having dizziness with it. Patient also has 2 drains which are full of blood. Active bleeding noted on exam. Exam limited in triage. I have greeted and performed a rapid initial assessment of this patient. A comprehensive ED assessment and evaluation of the patient, analysis of test results and completion of the medical decision making process with be conducted by additional ED providers. TRAVEL OUTSIDE OF THE [place] IN LAST 30 DAYS: No - Related Data Allergies/Adverse Reactions: Niacin Preparations Allergy (Verified 11/28/19 06:41) morphine Adverse Reaction (Verified 11/28/19 06:44) hallucinations; paranoia niacin [Niacin] Adverse Reaction (Verified 11/28/19 06:41) severe flushing Past Medical History - Past Medical History Cardiac Medical History: Reports: Hx Hypercholesterolemia, Hx Hypertension - PO MEDS Denies: Hx Coronary Artery Disease, Hx Heart Attack Pulmonary Medical History: Reports: Hx Asthma - CHILD Denies: Hx Bronchitis, Hx COPD, Hx Pneumonia Neurological Medical History: Denies: Hx Cerebrovascular Accident, Hx Seizures Endocrine Medical History: Reports: Hx Diabetes Mellitus Type 2 GI Medical History: Reports: Hx Gastroesophageal Reflux Disease, Hx Ulcer - DUODENAL. Denies: Hx Hepatitis, Hx Hiatal Hernia Musculoskeltal Medical History: Reports Hx Arthritis Infectious Medical History: Denies: Hx Hepatitis Past Surgical History: Reports: Hx Cholecystectomy, Hx Orthopedic Surgery - Neck. Denies: Hx Open Heart Surgery, Hx Pacemaker - Immunizations Hx Diphtheria, Pertussis, Tetanus Vaccination: No Physical Exam - Vital signs Vitals: Temp Pulse Resp BP Pulse Ox 98.3 F 99 20 123/53 L 97 11/28/19 22:21 11/28/19 22:21 11/28/19 22:21 11/28/19 22:21 11/28/19 22:21 Course - Vital Signs Vital signs: Temp Pulse Resp BP Pulse Ox 98.3 F 99 20 123/53 L 97 11/28/19 22:21 11/28/19 22:21 11/28/19 22:21 11/28/19 22:21 11/28/19 22:21 Doctor's Discharge - Discharge Referrals: LILIA GONZALEZ MD [Primary Care Provider] - Follow up as needed
[2019-11-29] MEDS ORDERED: HYDROCODONE/ACETAMINOPHEN 5-325 MG TABLET PO ONE (00:20)
[2019-11-29 01:41] LABS: INTERNATIONAL RATION (INR) 1.26; PROTHROMBIN TIME 15.9 SEC (11.4-15.4)
[2019-11-29 02:22] LABS: HEMATOCRIT 37.4 % (37.9-51.0); HEMOGLOBIN 11.2 g/dL (13.5-17.0); MEAN CORPUSCULAR HEMOGLOBIN 29.5 pg (27.0-33.4); MEAN CORPUSCULAR HGB CONC 29.9 g/dL (32.0-36.0); PLATELET COUNT 302 10^3/uL (150-450); RED BLOOD COUNT 3.78 10^6/uL (4.35-5.55); RED CELL DISTRIBUTION WIDTH 15.1 % (11.5-14.0)
[2019-11-29 02:33] LABS: ALBUMIN 3.6 g/dL (3.5-5.0); ALKALINE PHOSPHATASE 50 U/L (38-126); ASPARTATE AMINO TRANSFERASE 20 U/L (17-59); BILIRUBIN,TOTAL 0.3 mg/dL (0.2-1.3); BLOOD UREA NITROGEN 43 mg/dL (7-20); CALCIUM 8.1 mg/dL (8.4-10.2); TOTAL PROTEIN 5.8 g/dL (6.3-8.2)
[2019-11-29 02:40] LABS: POTASSIUM 5.8 mmol/L (3.6-5.0)
[2019-11-29 02:41] LABS: CHLORIDE 97 mmol/L (98-107)
[2019-11-29 02:48] LABS: ANION GAP 25 (5-19); CARBON DIOXIDE 11 mmol/L (22-30); GLUCOSE 626 mg/dL (75-110)
[2019-11-29 02:51] LABS: PARTIAL THROMBOPLASTIN TIME 20.7 SEC (23.5-35.8)
[2019-11-29] MEDS ORDERED: NORMAL SALINE 1000 ML 1,000 ML IV ONE (02:54)
[2019-11-29 03:00] LABS: MEAN CORPUSCULAR VOLUME 99 fl (80-97)
[2019-11-29] MEDS ORDERED: INSULIN REG, HUMAN 100 UNIT/ML 3 ML VIAL (PYX) ONE (03:12)
[2019-11-29 03:14] LABS: ABSOLUTE LYMPHOCYTES# (MANUAL) 0.4 10^3/uL (0.5-4.7); ABSOLUTE MONOCYTES # (MANUAL) 2.1 10^3/uL (0.1-1.4); ANISOCYTOSIS SLIGHT; BAND NEUTROPHILS % (MANUAL) 3 % (3-5); BASOPHILS % (MANUAL) 0 % (0-2); EOSINOPHILS % (MANUAL) 0 % (0-6); LYMPHOCYTES % (MANUAL) 2 % (13-45); MONOCYTES % (MANUAL) 11 % (3-13); SEGMENTED NEUTROPHILS % (MAN) 84 % (42-78); TOTAL CELLS COUNTED 100
[2019-11-29 03:15] LABS: PLATELET COMMENT ADEQUATE
[2019-11-29 03:16] LABS: OVALOCYTES SLIGHT
[2019-11-29] MEDS: NORMAL SALINE 100 ML with INSULIN REGULAR, HUMAN 100 UNIT IV PRN ×4 (03:22→11:55)
[2019-11-29] MEDS: ONDANSETRON HCL INJ/PF 4 MG/2 ML SDV IV ONE ×3 (03:22→04:10)
--- NOTE | 2019-11-29 03:47 | RADIOLOGY REPORT (SQ) ---
EXAM DESCRIPTION: XR CHEST 1 VIEW COMPLETED DATE/TME: 11/29/2019 02:54 CLINICAL HISTORY: 68 years, Male, dka COMPARISON: 01/08/2019 chest NUMBER OF VIEWS: 1 TECHNIQUE: Portable chest LIMITATIONS: None. FINDINGS: Low lung volumes. Heart size is normal. Subsegmental atelectasis in the lung bases. No pneumothorax. Post surgical change cervical spine IMPRESSION: Low lung volumes with bibasilar subsegmental atelectasis copyright 2010 [employer]- All Rights Reserved
[2019-11-29] MEDS: FENTANYL CITRATE INJ/PF 100 MCG/2 ML AMPUL IV PRN ×2 (04:01→06:26)
[2019-11-29 04:35] LABS: VENOUS BLOOD BASE EXCESS -18.2 mmol/L; VENOUS BLOOD HCO3 11.6 mmol/L (20-32); VENOUS BLOOD PCO2 43.2 mmHg (35-63)
[2019-11-29 04:36] LABS: VENOUS BLOOD PH 7.05 (7.30-7.42)
--- NOTE | 2019-11-29 05:14 | ER Document Report ---
ED General - General Chief Complaint: Post Surgical Bleeding Stated Complaint: BLEEDING Time Seen by Provider: 11/28/19 23:53 Primary Care Provider: LILIA GONZALEZ MD [Primary Care Provider] - Follow up as needed TRAVEL OUTSIDE OF THE [place] IN LAST 30 DAYS: No - HPI Notes: 68-year-old male with a chief complaint of postop bleeding that started approximately 4 hours prior to arrival here. Patient had a panniculectomy done this morning by Dr. Jones. Patient states he is having dizziness with it. Patient also has 2 drains which are full of blood. We note that the patient had had a previous gastric sleeve procedure and had lost about 90 pounds of weight since procedure. 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 For this reason he underwent a panniculectomy. Patient is an insulin-dependent diabetic and has not taken his insulin the day. He complains of abdominal pain and some nausea but no vomiting. He denies chest pain. He denies fever. - Related Data Allergies/Adverse Reactions: Niacin Preparations Allergy (Verified 11/28/19 06:41) morphine Adverse Reaction (Verified 11/28/19 06:44) hallucinations; paranoia niacin [Niacin] Adverse Reaction (Verified 11/28/19 06:41) severe flushing Past Medical History - General Information source: Patient, Relative - Social History Smoking Status: Never Smoker Family History: Reviewed & Not Pertinent Patient has suicidal ideation: No Patient has homicidal ideation: No - Past Medical History Cardiac Medical History: Reports: Hx Hypercholesterolemia, Hx Hypertension - PO MEDS Denies: Hx Coronary Artery Disease, Hx Heart Attack Pulmonary Medical History: Reports: Hx Asthma - CHILD Denies: Hx Bronchitis, Hx COPD, Hx Pneumonia Neurological Medical History: Denies: Hx Cerebrovascular Accident, Hx Seizures Endocrine Medical History: Reports: Hx Diabetes Mellitus Type 2 GI Medical History: Reports: Hx Gastroesophageal Reflux Disease, Hx Ulcer - DUODENAL. Denies: Hx Hepatitis, Hx Hiatal Hernia Musculoskeletal Medical History: Reports Hx Arthritis Infectious Medical History: Denies: Hx Hepatitis Past Surgical History: Reports: Hx Cholecystectomy, Hx Orthopedic Surgery - Neck. Denies: Hx Open Heart Surgery, Hx Pacemaker - Immunizations Hx Diphtheria, Pertussis, Tetanus Vaccination: No Hx Pneumococcal Vaccination: 08/06/19 Review of Systems - Review of Systems Notes: Constitutional: Negative for fever. HENT: Negative for sore throat. Eyes: Negative for visual changes. Cardiovascular: Negative for chest pain. Respiratory: Negative for shortness of breath. Gastrointestinal: As per HPI. Genitourinary: Negative for dysuria. Musculoskeletal: Negative for back pain. Skin: Negative for rash. Neurological: Negative for headaches, weakness or numbness. 10 point ROS negative except as marked above and in HPI. Physical Exam - Vital signs Vitals: Temp Pulse Resp BP Pulse Ox 98.3 F 99 20 123/53 L 97 11/28/19 22:21 11/28/19 22:21 11/28/19 22:21 11/28/19 22:21 11/28/19 22:21 - Notes Notes: GENERAL: Elderly man who appears uncomfortable. SKIN: Good turgor no rashes. HEAD: Normocephalic atraumatic. EYES: PERRLA. EOMI. Conjunctivae and sclerae clear. EARS: CANALS AND TMS CLEAR. NOSE: CLEAR. MOUTH: Moist mucosa. Good dentition. No stridor or edema. No drooling. NECK: Supple. No masses or thyromegaly. No adenopathy. Carotids 2+ without bruits. No JVD. BACK: Symmetrical without tenderness. CHEST: Respirations unlabored. Breath sounds clear and symmetrical. HEART: Regular rhythm. No murmur gallop or rub. ABDOMEN: Patient has a compression dressing over the abdomen and has [address] with drainage of some dark blood. He has a small amount of venous oozing around the drain sites.. GENITALIA: Deferred. EXTREMITIES: No edema. No calf tenderness. Cap refill less than 1.5 seconds. Dorsalis pedis and posterior tibial pulses 3+ and symmetrical. NEUROLOGICAL: GCS 15. Alert and oriented x3. Fluent speech. Cranial nerves II through XII intact. Sensorimotor and cerebellar normal. Normal tone. PSYCHIATRIC: Appropriate affect. Course - Re-evaluation Re-evalutation: 11/29/19 05:22 This man appeared hemodynamically stable with minimum bloody drainage around the KATTY drainage tubes. I spoke with his surgeon by telephone and per his instruction we milked the drainage tubes to assure patency. Patient's hemoglobin currently is 11.8 g. He remains hemodynamically stable. He felt from a surgical standpoint he was very stable and that he could be followed up on outpatient basis as previously directed. In the course of working this man up with family had a very elevated blood sugar in excess of 600. His venous pH was 7.02 with a bicarb of 11. He appeared clinically to be in diabetic ketoacidosis. He also has some acute kidney injury with a baseline creatinine about 1.05 and current creatinine of 1.58. I initiated IV fluids and an IV insulin infusion. Case was discussed with the on- call hospitalist Dr. Sampson who felt that he was sick enough that he should go to the ICU. Case was subsequently discussed with Félix Almonte NP working with Dr. Spencer from ICU and they have accepted patient for admission. - Vital Signs Vital signs: Temp Pulse Resp BP Pulse Ox 98.3 F 99 20 123/53 L 97 11/28/19 22:21 11/28/19 22:21 11/28/19 22:21 11/28/19 22:21 11/28/19 22:21 - Laboratory Result Diagrams: 11/29/19 02:00 11/29/19 02:00 Laboratory results interpreted by me: 11/29/19 11/29/19 11/29/19 01:07 02:00 02:00 WBC 19.0 H RBC 3.78 L Hgb 11.2 L Hct 37.4 L MCV 99 H D MCHC 29.9 L RDW 15.1 H Seg Neuts % (Manual) 84 H Lymphocytes % (Manual) 2 L Abs Neuts (Manual) 16.5 H Abs Lymphs (Manual) 0.4 L Abs Monocytes (Manual) 2.1 H PT 15.9 H APTT 20.7 L VBG pH VBG HCO3 Sodium 132.6 L Potassium 5.8 H D Chloride 97 L Carbon Dioxide 11 L Anion Gap 25 H BUN 43 H Creatinine 1.56 H Est GFR ( Amer) 54 L Est GFR (MDRD) Non-Af 45 L Glucose 626 H* Calcium 8.1 L Total Protein 5.8 L 11/29/19 04:08 WBC RBC Hgb Hct MCV MCHC RDW Seg Neuts % (Manual) Lymphocytes % (Manual) Abs Neuts (Manual) Abs Lymphs (Manual) Abs Monocytes (Manual) PT APTT VBG pH 7.05 L* VBG HCO3 11.6 L Sodium Potassium Chloride Carbon Dioxide Anion Gap BUN Creatinine Est GFR ( Amer) Est GFR (MDRD) Non-Af Glucose Calcium Total Protein - EKG Interpretation by Me Additional EKG results interpreted by me: 11/29/19 05:29 Twelve-lead EKG from 0418 hrs. reviewed contemporaneously by me demonstrating a sinus rhythm with a rate of 98 and nonspecific intraventricular conduction delay. No acute ST changes appreciated. Overall appearance of the tracing was similar to prior study of 11/15/2017. Critical Care Note - Critical Care Note Total time excluding time spent on procedures (mins): 90 Comments: IV insulin infusion initiated along with fluid resuscitation for severe diabetic ketoacidosis. Discharge - Discharge Clinical Impression: Postoperative bleeding from incision Diabetic ketoacidosis Qualifiers: Diabetes mellitus type: type 1 Diabetes mellitus complication detail: without coma Qualified Code(s): E10.10 - Type 1 diabetes mellitus with ketoacidosis without coma Condition: Critical Disposition: ADMITTED INPATIENT Admitting Provider: Dione ([employer]) Unit Admitted: ICU Referrals: LILIA GONZALEZ MD [Primary Care Provider] - Follow up as needed
[2019-11-29] MEDS ORDERED: ALBUTEROL SULFATE 0.083% NEB 2.5 MG/3 ML AMPUL NEB PRN (06:06)
[2019-11-29] MEDS ORDERED: DEXTROSE 50%-WATER 25 GM/50 ML DISP.SYRIN IV PRN ×2 (06:06)
[2019-11-29] MEDS ORDERED: GLUCAGON,HUMAN RECOMB 1 MG INJ SUBCUT PRN (06:06)
[2019-11-29] MEDS ORDERED: NORMAL SALINE 1000 ML 1,000 ML IV PRN (06:06)
[2019-11-29] MEDS ORDERED: DEXTROSE 40% GEL 15 GM TUBE PO PRN ×2 (06:06)
--- NOTE | 2019-11-29 06:06 | CRITICAL CARE ADMISSION REPORT ---
HPI Date:: 11/29/19 Time:: 05:56 Reason for ICU Reason:: Diabetic Ketoacidosis HPI: Mr. Siegel is a 68-year-old male with a past medical history significant for hypertension, hyperlipidemia, and type 2 diabetes whom had gastric sleeve surgery approximately 2 years ago with subsequent expected weight loss of approximately 90 pounds resulting in excessive pannus for which he had a panniculectomy on 11/27/[address] Jones. Patient was experiencing dizziness and oozing from his surgical drain site region upon standing to urinate at home for which he presented to [facility]. He denies chest pain, shortness of breath, or palpitations. He reports he has been eating without difficulty since surgery, but forgot to take his long-acting insulin yesterday morning and had pasta amongst other items for dinner with his . Mr. Siegel was found to be in diabetic ketoacidosis with a glucose of 626 with a serum bicarbonate of 11, JOHANNA with a creatinine of 1.56, anion gap of 25, hyperkalemia 5.8, and ketonuria. To note, his last hemoglobin A1c was 8.9 on 07/24/2019. Patient will be admitted as observation status to ICU for management of DKA and JOHANNA for which he is expected to stay <2 midnights at the time of ICU evaluation. History obtained from:: patient, ER physician, medical record - Diagnosis/Plan (1) Diabetic ketoacidosis Qualifiers: Diabetes mellitus type: type 2 Diabetes mellitus complication detail: without coma Qualified Code(s): E11.10 - Type 2 diabetes mellitus with ketoacidosis without coma Is this a current diagnosis for this admission?: Yes Plan: Start NS maintenance IV fluids at 250 ml/hr given patient's age monitoring need to increase prn. When glucose <250, will need to add Dextrose to IV fluid. BMP, pH q4h x3 for now. Will check lactic acid with next set of labs at 8am. Resume home Lantus of 22 units daily in the morning on 11/30/19. Also has oral anti-hyperglycemic medications which will need to be resumed. (2) Metabolic acidosis due to diabetes mellitus Is this a current diagnosis for this admission?: Yes Plan: Plan as above per DKA. Check lactic acid. F/U pH to ensure metabolic acidemia improving. (3) Diabetes mellitus, type 2 Qualifiers: Diabetes mellitus correction insulin use: with coding technician use Diabetes mellitus complication status: without complication Qualified Code(s): E11.9 - Type 2 diabetes mellitus without complications; Z79.4 - correction (current) use of insulin Is this a current diagnosis for this admission?: Yes Plan: Insulin infusion with q1h accuchecks. Resume home Lantus in AM, also considering PO anti-hyperglycemic meds. (4) JOHANNA (acute kidney injury) Is this a current diagnosis for this admission?: Yes Plan: Hydration with IV fluids, repeat BMP q4h x3 monitoring anion GAP and renal function. Anticipate JOHANNA will resolve today with fluids. (5) Hyperkalemia Is this a current diagnosis for this admission?: Yes Plan: Administer Calcium Gluconate x1 dose for cardioprotection. F/U BMP results at 08:00 and noon; anticipate will correct on own with hydration and insulin infusion. May actually end up needing Potassium repletion later today. (6) Postoperative pain Is this a current diagnosis for this admission?: Yes Plan: Pain control avoiding morphine due to allergy. Change fentanyl to breakthrough pain only and decrease frequency to q3h. Add Tramadol prn for mild-mod pain, Hydrocodone for severe pain. AVOID NSAID's at this time due to venous oozing via drains & JOHANNA. Resume home Lyrica. (7) HTN (hypertension) Qualifiers: Hypertension type: essential hypertension Qualified Code(s): I10 - Essential (primary) hypertension Is this a current diagnosis for this admission?: Yes Plan: Resume home Diltiazem, Losartan, and Torsemide after patient has been adequately hydrated and clinically appropriate. Telemetry, ICU vital signs. (8) HLD (hyperlipidemia) Qualifiers: Hyperlipidemia type: unspecified Qualified Code(s): E78.5 - Hyperlipidemia, unspecified Is this a current diagnosis for this admission?: Yes Plan: Ask Pharmacy to auto-substitute per [place] formulary during morning rounds. (9) GERD (gastroesophageal reflux disease) Qualifiers: Esophagitis presence: esophagitis presence not specified Qualified Code(s): K21.9 - Gastro-esophageal reflux disease without esophagitis Is this a current diagnosis for this admission?: Yes Plan: On home Esomeprazole; will start IV Protonix daily for now. (10) Status post panniculectomy Is this a current diagnosis for this admission?: Yes Plan: Continue pressure dressing binder per Dr Jones, patient's surgeon. Empty surgical drains as they continue to fill. Monitor for active bleeding. Monitor drain quantity & characteristics; repeat CBC in AM and sooner if indicated. (11) Leukocytosis Qualifiers: Leukocytosis type: unspecified Qualified Code(s): D72.829 - Elevated white blood cell count, unspecified Is this a current diagnosis for this admission?: Yes Plan: Suspect it is a reactive response from recent surgery and not infectious etiology. AM CBC Past Medical History Cardiac Medical History: Reports: Hyperlipidema, Hypertension - PO MEDS Denies: Atrial Fibrillation, Congestive Heart Failure, Coronary Artery Disease, Myocardial Infarction Pulmonary Medical History: Reports: Asthma - childhood Denies: Bronchitis, Chronic Obstructive Pulmonary Disease (COPD), Pneumonia EENT Medical History: Reports: None Neurological Medical History: Denies: Seizures Endocrine Medical History: Reports: Diabetes Mellitus Type 2 Renal/ Medical History: Denies: Chronic Kidney Disease Malignancy Medical History: Denies: None GI Medical History: Reports: Gastroesophageal Reflux Disease - On Nexium Denies: Hepatitis, Hiatal Hernia Musculoskeltal Medical History: Reports: Arthritis Skin Medical History: Reports: None Psychiatric Medical History: Denies: Alcohol Dependency, Tobacco Dependency Traumatic Medical History: Reports: None Hematology: Denies: Anemia, Sickle Cell Disease Infectious Medical History: Reports: None Past Surgical History Past Surgical History: Reports: Cholecystectomy, Orthopedic Surgery - Neck, Other - Gastric sleeve "2 yrs ago." Panniculectomy 11/27/2019 Denies: Pacemaker Social/Family History - Social History Smoking Status: Never Smoker Frequency of Alcohol Use: None Hx Recreational Drug Use: No - Family History Family History: Hyperlipidemia, Hypertension - Medication/Allergies Home Medications: Esomeprazole Magnesium [Nexium] 40 mg PO DAILY 12/11/14 Losartan Potassium 50 mg PO DAILY 12/11/14 Metformin HCl [Glucophage 500 mg Tablet] 2 tab PO BID 12/11/14 Pregabalin [Lyrica 50 mg Capsule] 50 mg PO BID 12/11/14 Torsemide [Demadex 20 mg Tablet] 20 mg PO DAILY 12/11/14 Clotrimazole-Betamethasone 1 dose TOP ASDIR PRN 03/19/15 Fenofibrate Nanocrystallized [Fenofibrate] 1 tab PO DAILY 03/19/15 Glimepiride [Amaryl 4 mg Tablet] 1 tab PO DAILY 03/19/15 Insulin Glargine,Hum.rec.anlog [Lantus] 22 unit SUBCUT DAILY 03/19/15 Potassium Chloride [Klor-Con 10] 1 tab PO DAILY 03/19/15 Sennosides/Docusate Sodium [Eql Stool Softener-Stim Lax Tb] 1 each PO BID Cetirizine HCl [Zyrtec 10 mg Tablet] 1 tab PO DAILY PRN 11/21/19 Diltiazem HCl 120 mg PO DAILY 11/21/19 Lubiprostone [Amitiza 8 Mcg Capsule] 1 cap PO BID PRN 11/21/19 Pravastatin Sodium 40 mg PO DAILY 11/21/19 Acetaminophen 2 tab PO PRN PRN 11/28/19 Tamsulosin HCl [Flomax] 1 cap PO QHS 11/28/19 Allergies/Adverse Reactions: Niacin Preparations Allergy (Verified 11/28/19 06:41) morphine Adverse Reaction (Verified 11/28/19 06:44) hallucinations; paranoia niacin [Niacin] Adverse Reaction (Verified 11/28/19 06:41) severe flushing Review of Systems Constitutional: PRESENT: weakness, other - dizziness with standing. ABSENT: anorexia, chills, fatigue, fever(s), headache(s), night sweats Eyes: ABSENT: visual disturbances Ears: ABSENT: hearing changes Nose, Mouth, and Throat: ABSENT: mouth pain, sore throat Cardiovascular: ABSENT: chest pain, dyspnea on exertion, edema, palpitations Respiratory: ABSENT: cough, dyspnea, hemoptysis, sputum Gastrointestinal: PRESENT: abdominal pain - expectant from panniculectomy which is where pain is localized, nausea - "after fentanyl" in ED (though also in DKA which may be contributing). ABSENT: bloating, coffee ground emesis, constipation, diarrhea, dysphagia, heartburn, hematemesis, hematochezia, melena Genitourinary: ABSENT: difficulty urinating, dysuria, hematuria Musculoskeletal: PRESENT: muscle weakness. ABSENT: back pain, joint swelling Integumentary: PRESENT: other - recent postop incisional site covered up by bandage which is not to be removed per Dr Jones.. ABSENT: diaphoresis, erythema, lesions, pruritus, rash Neurological: PRESENT: dizziness - with standing, weakness. ABSENT: confusion, convulsions, frequent falls, lack of coordination, syncope Psychiatric: ABSENT: anxiety, depression, hallucinations, suicidal ideation Endocrine: ABSENT: cold intolerance, heat intolerance, polydipsia, polyphagia, polyuria Hematologic/Lymphatic: ABSENT: easy bleeding, lymphadenopathy Physical Exam Vital Signs: Temp Pulse Resp BP Pulse Ox 98.3 F 99 20 123/53 L 96 11/28/19 22:21 11/28/19 22:21 11/28/19 22:21 11/28/19 22:21 11/29/19 02:56 Intake & Output 11/27/19 11/28/19 11/29/19 06:59 06:59 06:59 Intake Total 1014 Balance 1014 Weight 88.6 kg Weight/Height Weight 88.6 kg Height 5 ft 8 in General appearance: PRESENT: no acute distress, cooperative, well-nourished Head exam: PRESENT: atraumatic, normocephalic Eye exam: PRESENT: conjunctiva pink, EOMI, PERRLA. ABSENT: scleral icterus Ear exam: PRESENT: normal external ear exam Mouth exam: PRESENT: dry mucosa, neck supple, tongue midline Throat exam: ABSENT: post pharyngeal erythema Neck exam: PRESENT: full ROM. ABSENT: JVD, lymphadenopathy, tenderness, trach eal deviation Respiratory exam: PRESENT: clear to auscultation bryanna, unlabored. ABSENT: accessory muscle use, wheezes Cardiovascular exam: PRESENT: RRR, +S1, +S2. ABSENT: gallop, rubs, systolic murmur Pulses: PRESENT: normal carotid pulses, normal radial pulses, +2 pedal pulses bilateral Vascular exam: PRESENT: normal capillary refill GI/Abdominal exam: PRESENT: hypoactive bowel sounds, soft, tenderness - appropriately tender bilateral lower quadrants given recent surgery. ABSENT: guarding Rectal exam: PRESENT: deferred Gentrourinary exam: ABSENT: erythema, lesions, scrotal swelling, urethral discharge, indwelling catheter Extremities exam: PRESENT: full ROM. ABSENT: calf tenderness, clubbing, joint swelling, pedal edema, tenderness Musculoskeletal exam: PRESENT: full ROM, normal inspection. ABSENT: tenderness Neurological exam: PRESENT: alert, awake, oriented to person, oriented to place, oriented to time, oriented to situation, CN II-XII grossly intact Psychiatric exam: PRESENT: appropriate affect Skin exam: PRESENT: dry, intact - unable to visualize surgical wounds, warm. ABSENT: erythema, jaundice Laboratory/Radiographs Laboratory Results: 11/29/19 02:00 11/29/19 11/29/19 11/29/19 01:07 01:07 01:07 WBC Cancelled RBC Cancelled Hgb Cancelled Hct Cancelled MCV Cancelled MCH Cancelled MCHC Cancelled RDW Cancelled Plt Count Cancelled Seg Neutrophils % Cancelled VBG pH VBG pCO2 VBG HCO3 VBG Base Excess Sodium Cancelled Potassium Cancelled Chloride Cancelled Carbon Dioxide Cancelled Anion Gap Cancelled BUN Cancelled Creatinine Cancelled Est GFR ( Amer) Cancelled Est GFR (Non-Af Amer) Cancelled Glucose Cancelled Calcium Cancelled Total Bilirubin Cancelled AST Cancelled Alkaline Phosphatase Cancelled Total Protein Cancelled Albumin Cancelled Blood Type O POSITIVE Antibody Screen NEGATIVE 11/29/19 11/29/19 11/29/19 02:00 02:00 04:08 WBC 19.0 H RBC 3.78 L Hgb 11.2 L Hct 37.4 L MCV 99 H D MCH 29.5 MCHC 29.9 L RDW 15.1 H Plt Count 302 Seg Neutrophils % Not Reportable VBG pH 7.05 L* VBG pCO2 43.2 VBG HCO3 11.6 L VBG Base Excess -18.2 Sodium 132.6 L Potassium 5.8 H D Chloride 97 L Carbon Dioxide 11 L Anion Gap 25 H BUN 43 H Creatinine 1.56 H Est GFR ( Amer) 54 L Est GFR (Non-Af Amer) Glucose 626 H* Calcium 8.1 L Total Bilirubin 0.3 AST 20 Alkaline Phosphatase 50 Total Protein 5.8 L Albumin 3.6 Blood Type Antibody Screen 11/29/19 11/29/19 03:40 04:08 Troponin I Cancelled < 0.012 Impressions: Chest X-Ray 11/29/19 02:54 IMPRESSION: Low lung volumes with bibasilar subsegmental atelectasis copyright 2011 [employer]- All Rights Reserved EKG: without evidence of cardiac ischemia/infarction All labs, radiographs, diagnostic studies and EKGs were personally reviewed: Yes Critical Time Critical Time (minutes): 70 -: The care of a critically ill patient is dynamic. This note represents a static moment in the admission process. Orders and treatments may be given simultaneously and urgently, and time is not pharmacy sales representative of the treatment process. This patient requires Critical Care secondary to life threatening organ or limb dysfunction. Without Critical Care services, the patient is at risk for increased mortality and morbidity. Billing code: [id number]
[2019-11-29] MEDS ORDERED: CALCIUM GLUCONATE 1000 MG/10 ML INJ IV ONE (06:34)
--- NOTE | 2019-11-29 07:02 | EKG REPORT ---
SEVERITY:- ABNORMAL ECG - SINUS RHYTHM NONSPECIFIC INTRAVENTRICULAR CONDUCTION DELAY LOW VOLTAGE IN FRONTAL LEADS : Confirmed by: Nino Galloway MD 29-Nov-2019 07:02:11
[2019-11-29 07:04] LABS: APPEARANCE,URINE CLEAR; BILIRUBIN,URINE NEGATIVE (NEGATIVE); COLOR,URINE YELLOW; GLUCOSE, URINE >=500 mg/dL (NEGATIVE); KETONES,URINE 20 mg/dL (NEGATIVE); LEUKOCYTE ESTERASE,URINE NEGATIVE (NEGATIVE); NITRITE,URINE NEGATIVE (NEGATIVE); PROTEIN,URINE NEGATIVE (NEGATIVE); URINE SPECIFIC GRAVITY 1.018; UROBILINOGEN,URINE NEGATIVE mg/dL (<2.0)
[2019-11-29] MEDS ORDERED: TRAMADOL HCL 50 MG TABLET PO PRN (08:08)
[2019-11-29] MEDS ORDERED: FENTANYL CITRATE INJ/PF 100 MCG/2 ML AMPUL IV PRN (08:09)
[2019-11-29] MEDS ORDERED: ONDANSETRON HCL INJ/PF 4 MG/2 ML SDV IV PRN (08:10)
[2019-11-29] MEDS: HYDROCODONE/ACETAMINOPHEN 5-325 MG TABLET PO PRN ×2 (09:29→14:12)
[2019-11-29] MEDS: PREGABALIN 50 MG CAPSULE PO SCH ×2 (09:30→18:44)
[2019-11-29] MEDS ORDERED: PANTOPRAZOLE SODIUM 40 MG VIAL IV SCH (10:00)
[2019-11-29] MEDS: PANTOPRAZOLE SODIUM 40 MG TABLET.DR PO SCH (10:39)
[2019-11-29 11:45] LABS: ANION GAP 13 (5-19); BLOOD UREA NITROGEN 51 mg/dL (7-20); CALCIUM 8.4 mg/dL (8.4-10.2); CHLORIDE 101 mmol/L (98-107); GLUCOSE 339 mg/dL (75-110)
[2019-11-29 12:22] LABS: CARBON DIOXIDE 22 mmol/L (22-30); POTASSIUM 4.8 mmol/L (3.6-5.0)
[2019-11-29 14:58] LABS: ANION GAP 11 (5-19); BLOOD UREA NITROGEN 53 mg/dL (7-20); CALCIUM 8.1 mg/dL (8.4-10.2); CARBON DIOXIDE 22 mmol/L (22-30); CHLORIDE 102 mmol/L (98-107); GLUCOSE 173 mg/dL (75-110); POTASSIUM 4.6 mmol/L (3.6-5.0)
[2019-11-29] MEDS ORDERED: LUBIPROSTONE 8 MCG CAPSULE PO PRN ×2 (16:20→17:30)
[2019-11-29] MEDS ORDERED: DEXTROSE 5%-NORMAL SALINE 1,000 ML IV PRN (16:39)
[2019-11-29] MEDS ORDERED: DEXTROSE 5%-NORMAL SALINE 1,000 ML IV ONE (16:44)
[2019-11-29] MEDS ORDERED: TAMSULOSIN HCL 0.4 MG CAP.SR.24H PO SCH ×2 (18:00→22:00)
[2019-11-29] MEDS ORDERED: POTASSIUM CHLORIDE PO SCH (18:00)
[2019-11-29] MEDS ORDERED: PREGABALIN 50 MG CAPSULE PO SCH (18:00)
[2019-11-29] MEDS: METHOCARBAMOL 500 MG TABLET PO SCH (18:44)
[2019-11-29] MEDS: POTASSIUM CHLORIDE 10 MEQ TABLET.ER PO SCH (18:45)
[2019-11-29] MEDS ORDERED: INSULIN GLARGINE,HUM.REC.ANLOG 1,000 UNIT/10 ML VIAL SUBCUT SCH (20:15)
[2019-11-29] MEDS ORDERED: INSULIN GLARGINE,HUM.REC.ANLOG 1,000 UNIT/10 ML VIAL (PYX) SUBCUT ONE (21:00)
[2019-11-29 21:15] LABS: ANION GAP 9 (5-19); BLOOD UREA NITROGEN 55 mg/dL (7-20); CALCIUM 8.1 mg/dL (8.4-10.2); CARBON DIOXIDE 24 mmol/L (22-30); CHLORIDE 102 mmol/L (98-107); GLUCOSE 119 mg/dL (75-110); POTASSIUM 4.8 mmol/L (3.6-5.0)
[2019-11-29] MEDS: DOCUSATE SODIUM 100 MG CAPSULE PO SCH (21:34)
[2019-11-30] MEDS ORDERED: INSULIN REG, HUMAN 100 UNIT/ML 3 ML VIAL (PYX) SUBCUT SCH ×3 (04:00→08:00)
[2019-11-30 04:28] LABS: ANION GAP 7 (5-19); BLOOD UREA NITROGEN 47 mg/dL (7-20); CALCIUM 8.1 mg/dL (8.4-10.2); CARBON DIOXIDE 23 mmol/L (22-30); CHLORIDE 105 mmol/L (98-107); GLUCOSE 195 mg/dL (75-110); POTASSIUM 4.8 mmol/L (3.6-5.0)
[2019-11-30] MEDS ORDERED: ACETAMINOPHEN 325 MG TABLET PO PRN (06:17)
--- NOTE | 2019-11-30 08:59 | PDOC DISCHARGE SUMMARY ---
Impression - Admit/DC Date/PCP Admission Date/Primary Care Provider: 11/29/19 05:37 LILIA GONZALEZ MD Discharge Date: 11/30/19 - Discharge Diagnosis (1) Diabetic ketoacidosis Is this a current diagnosis for this admission?: Yes (2) Status post panniculectomy Is this a current diagnosis for this admission?: Yes (3) Diabetes mellitus, type 2 Is this a current diagnosis for this admission?: Yes (4) JOHANNA (acute kidney injury) Is this a current diagnosis for this admission?: Yes (5) GERD (gastroesophageal reflux disease) Is this a current diagnosis for this admission?: Yes - Assessment Summary: This patient is a 68 yo man who underwent a panniculectomy 11/28. He is a diabetic and was fond to be in DKA 11/29. He DM type 2 so DKA is unusual but his bicarb was 11 and his BG 642. He was on an insulin drip for most of 11/29. He is on a diabetic diet, his surgical site shows less swelling and JPs are putting out about 450cc for the day. He is anxious to get home and is stable to do such. I have updated Dr. Hopper. - Additional Information Resuscitation Status: Full Code Discharge Diet: Diabetic Discharge Activity: Activity As Tolerated Referrals: LILIA GONZALEZ MD [Primary Care Provider] - Follow up as needed Home Medications: Esomeprazole Magnesium [Nexium] 40 mg PO DAILY 12/11/14 Losartan Potassium 50 mg PO DAILY 12/11/14 Metformin HCl [Glucophage 500 mg Tablet] 2 tab PO BID 12/11/14 Pregabalin [Lyrica 50 mg Capsule] 50 mg PO BID 12/11/14 Torsemide [Demadex 20 mg Tablet] 20 mg PO DAILY 12/11/14 Clotrimazole-Betamethasone 1 dose TOP ASDIR PRN 03/19/15 Fenofibrate Nanocrystallized [Fenofibrate] 1 tab PO DAILY 03/19/15 Glimepiride [Amaryl 4 mg Tablet] 1 tab PO BID 03/19/15 Insulin Glargine,Hum.rec.anlog [Lantus] 50 unit SUBCUT DAILY 03/19/15 Potassium Chloride [Klor-Con 10] 1 tab PO BID 03/19/15 Lubiprostone [Amitiza 8 Mcg Capsule] 1 cap PO BID PRN 11/21/19 Pravastatin Sodium 40 mg PO DAILY 11/21/19 Tamsulosin HCl [Flomax] 1 cap PO QHS 11/28/19 Diltiazem HCl [Diltiazem ER] 120 mg PO DAILY 11/29/19 Insulin Aspart [Novolog] 5 unit SQ ASDIR PRN 11/29/19 Methocarbamol 1,000 mg PO TID 11/29/19 Sitagliptin Phosphate [Januvia 50 mg Tablet] 50 mg PO DAILY 11/29/19 History of Present Illiness History of Present Illness: VAISHALI CHRISTY is a 68 year old male Hospital Course Hospital Course: He was on a drip until about 10P on 11/29. Now on diabetic diet and his metformin and lantus are restarted. Follow up with Dr. Hopper as arranged and primary care as needed. Physical Exam Vital Signs: Temp Pulse Resp BP Pulse Ox 98.1 F 100 21 H 127/66 H 100 11/30/19 08:00 11/30/19 08:00 11/30/19 08:00 11/30/19 08:00 11/30/19 08:00 Intake & Output 11/29/19 11/30/19 12/01/19 06:59 06:59 06:59 Intake Total 1026 719 Output Total 80 1150 100 Balance 946 -431 -100 Weight 89.8 kg 93.6 kg General appearance: PRESENT: no acute distress, well-developed, well-nourished Head exam: PRESENT: atraumatic, normocephalic Eye exam: PRESENT: conjunctiva pink, EOMI, PERRLA. ABSENT: scleral icterus Ear exam: PRESENT: normal external ear exam Respiratory exam: PRESENT: clear to auscultation bryanna. ABSENT: rales, rhonchi, wheezes Cardiovascular exam: PRESENT: RRR. ABSENT: diastolic murmur, rubs, systolic murmur Vascular exam: PRESENT: normal capillary refill GI/Abdominal exam: PRESENT: normal bowel sounds, soft. ABSENT: distended, guarding, mass, organolmegaly, rebound, tenderness Rectal exam: PRESENT: deferred Extremities exam: PRESENT: full ROM. ABSENT: calf tenderness, clubbing, pedal edema Musculoskeletal exam: PRESENT: ambulatory Neurological exam: PRESENT: alert, awake, oriented to person, oriented to place, oriented to time, oriented to situation, CN II-XII grossly intact. ABSENT: motor sensory deficit Skin exam: PRESENT: other - Surgical sit clean. Jps putting out about 450cc for 24 hours and serosanguinous. Looks quite dilute. Testes still ecchymotic patient says improved and swelling less. Results Laboratory Results: WBC 19.0 10^3/uL (4.0-10.5) H 11/29/19 02:00 RBC 3.78 10^6/uL (4.35-5.55) L 11/29/19 02:00 Hgb 11.2 g/dL (13.5-17.0) L 11/29/19 02:00 Hct 37.4 % (37.9-51.0) L 11/29/19 02:00 MCV 99 fl (80-97) H D 11/29/19 02:00 MCH 29.5 pg (27.0-33.4) 11/29/19 02:00 MCHC 29.9 g/dL (32.0-36.0) L 11/29/19 02:00 RDW 15.1 % (11.5-14.0) H 11/29/19 02:00 Plt Count 302 10^3/uL (150-450) 11/29/19 02:00 Lymph % (Auto) Not Reportable 11/29/19 02:00 [place] % (Auto) Not Reportable 11/29/19 02:00 Eos % (Auto) Not Reportable 11/29/19 02:00 Baso % (Auto) Not Reportable 11/29/19 02:00 Absolute Neuts (auto) Not Reportable 11/29/19 02:00 Absolute Lymphs (auto) Not Reportable 11/29/19 02:00 Absolute Monos (auto) Not Reportable 11/29/19 02:00 Absolute Eos (auto) Not Reportable 11/29/19 02:00 Absolute Basos (auto) Not Reportable 11/29/19 02:00 Total Counted 100 11/29/19 02:00 Seg Neutrophils % Not Reportable 11/29/19 02:00 Seg Neuts % (Manual) 84 % (42-78) H 11/29/19 02:00 Band Neutrophils % 3 % (3-5) 11/29/19 02:00 Lymphocytes % (Manual) 2 % (13-45) L 11/29/19 02:00 Monocytes % (Manual) 11 % (3-13) 11/29/19 02:00 Eosinophils % (Manual) 0 % (0-6) 11/29/19 02:00 Basophils % (Manual) 0 % (0-2) 11/29/19 02:00 Abs Neuts (Manual) 16.5 10^3/uL (1.7-8.2) H 11/29/19 02:00 Abs Lymphs (Manual) 0.4 10^3/uL (0.5-4.7) L 11/29/19 02:00 Abs Monocytes (Manual) 2.1 10^3/uL (0.1-1.4) H 11/29/19 02:00 Absolute Eos (Manual) 0.0 10^3/uL (0.0-0.6) 11/29/19 02:00 Abs Basophils (Manual) 0.0 10^3/uL (0.0-0.2) 11/29/19 02:00 Platelet Estimate Cancelled 11/29/19 01:07 Platelet Comment ADEQUATE 11/29/19 02:00 Anisocytosis SLIGHT 11/29/19 02:00 Macrocytosis SLIGHT 11/29/19 02:00 Ovalocytes SLIGHT 11/29/19 02:00 PT 15.9 SEC (11.4-15.4) H 11/29/19 01:07 INR 1.26 11/29/19 01:07 APTT 20.7 SEC (23.5-35.8) L 11/29/19 01:07 VBG pH 7.05 (7.30-7.42) L* 11/29/19 04:08 VBG pCO2 43.2 mmHg (35-63) 11/29/19 04:08 VBG HCO3 11.6 mmol/L (20-32) L 11/29/19 04:08 VBG Base Excess -18.2 mmol/L 11/29/19 04:08 Sodium 135.0 mmol/L (137-145) L 11/30/19 03:52 Potassium 4.8 mmol/L (3.6-5.0) 11/30/19 03:52 Chloride 105 mmol/L (98-107) 11/30/19 03:52 Carbon Dioxide 23 mmol/L (22-30) 11/30/19 03:52 Anion Gap 7 (5-19) 11/30/19 03:52 BUN 47 mg/dL (7-20) H 11/30/19 03:52 Creatinine 1.21 mg/dL (0.52-1.25) 11/30/19 03:52 Est GFR ( Amer) > 60 (>60) 11/30/19 03:52 Est GFR (Non-Af Amer) Cancelled 11/29/19 01:07 Est GFR (MDRD) Non-Af > 60 (>60) 11/30/19 03:52 Glucose 195 mg/dL (75-110) H 11/30/19 03:52 POC Glucose 210 mg/dL (70-110) H 11/30/19 04:32 Lactic Acid 3.6 mmol/L (0.7-2.1) H 11/29/19 11:13 Calcium 8.1 mg/dL (8.4-10.2) L 11/30/19 03:52 Total Bilirubin 0.3 mg/dL (0.2-1.3) 11/29/19 02:00 Direct Bilirubin 0.0 mg/dL (0.0-0.4) 11/29/19 02:00 Neonat Total Bilirubin Not Reportable 11/29/19 02:00 Neonat Direct Bilirubin Not Reportable 11/29/19 02:00 Neonat Indirect Bili Not Reportable 11/29/19 02:00 AST 20 U/L (17-59) 11/29/19 02:00 ALT 11 U/L (<50) 11/29/19 02:00 Alkaline Phosphatase 50 U/L (38-126) 11/29/19 02:00 Troponin I < 0.012 ng/mL 11/29/19 04:08 Total Protein 5.8 g/dL (6.3-8.2) L 11/29/19 02:00 Albumin 3.6 g/dL (3.5-5.0) 11/29/19 02:00 EGFR Cancelled 11/29/19 01:07 Urine Color YELLOW 11/29/19 06:02 Urine Appearance CLEAR 11/29/19 06:02 Urine pH 5.0 (5.0-9.0) 11/29/19 06:02 Ur Specific [place] 1.018 11/29/19 06:02 Urine Protein NEGATIVE mg/dL (NEGATIVE) 11/29/19 06:02 Urine Glucose (UA) >=500 mg/dL (NEGATIVE) H 11/29/19 06:02 Urine Ketones 20 mg/dL (NEGATIVE) H 11/29/19 06:02 Urine Blood LARGE (NEGATIVE) H 11/29/19 06:02 Urine Nitrite NEGATIVE (NEGATIVE) 11/29/19 06:02 Urine Nitrite (Reflex) Cancelled 11/29/19 06:02 Urine Bilirubin NEGATIVE (NEGATIVE) 11/29/19 06:02 Urine Urobilinogen NEGATIVE mg/dL (<2.0) 11/29/19 06:02 Ur Leukocyte Esterase NEGATIVE (NEGATIVE) 11/29/19 06:02 Leukocyte Esterase Rfl Cancelled 11/29/19 06:02 Urine WBC (Auto) 1 /HPF 11/29/19 06:02 Urine RBC (Auto) 118 /HPF 11/29/19 06:02 Urine Bacteria (Auto) TRACE /HPF 11/29/19 06:02 Urine WBC (Reflex) Cancelled 11/29/19 06:02 Squamous Epi Cells Auto <1 /HPF 11/29/19 06:02 Urine Mucus (Auto) RARE /LPF 11/29/19 06:02 Urine Ascorbic Acid NEGATIVE (NEGATIVE) 11/29/19 06:02 Slides for Path Review Cancelled 11/29/19 01:07 Blood Type O POSITIVE 11/29/19 01:07 Antibody Screen NEGATIVE 11/29/19 01:07 11/29/19 11/29/19 03:40 04:08 Troponin I Cancelled < 0.012 Impressions: Chest X-Ray 11/29/19 02:54 IMPRESSION: Low lung volumes with bibasilar subsegmental atelectasis copyright 2011 [employer]- All Rights Reserved Plan Health Concerns: Still unsure why at age 68 he was in first ever DKA. Likely multifactorial. Npo status, recent surgery, skipping insulin and having a high carbohydrate dinner 11/28 (norisetti) all contributed. All resolved now. Plan of Treatment: OK to go home and resume diabetic medications and diet. Goals: Resume previous health status. Critical Time: 35 Level of Care: MEDICAL Stroke Is this a Stroke Patient?: No Acute Heart Failure - Is this a Heart Failure Patient?: No
--- NOTE | 2019-11-30 09:01 | Progress Note ---
Provider Note Provider Note: Patient admitted earlier today in first ever episode of DKA. Hope to have anion gap closed soon, start diet and discharge by tommorow.
[2019-11-30] MEDS ORDERED: DILTIAZEM HCL 120 MG CAP.SR.24H PO SCH (10:00)
[2019-11-30] MEDS ORDERED: INSULIN GLARGINE,HUM.REC.ANLOG 1,000 UNIT/10 ML VIAL SUBCUT SCH (10:00)
[2019-11-30] MEDS ORDERED: TORSEMIDE 20 MG TABLET PO SCH (10:00)
[2019-11-30] MEDS ORDERED: FENOFIBRATE NANOCRYSTALLIZED 145 MG TABLET PO SCH (10:00)
[2019-11-30] MEDS ORDERED: ATORVASTATIN CALCIUM 10 MG TABLET PO SCH (10:00)
[2019-11-30] MEDS ORDERED: (PENDING PHARMACY ID) (Pravastatin Sodium [Pravastatin Sodium] 40 MG) PO SCH (10:00)
[2019-11-30] MEDS ORDERED: LOSARTAN POTASSIUM 50 MG TABLET PO SCH (10:00)
[2019-11-30] MEDS ORDERED: (PENDING PHARMACY ID) (Diltiazem Hcl [Diltiazem 24hr Er] 120 MG) PO SCH (10:00)
[2019-11-30] MEDS: PANTOPRAZOLE SODIUM 40 MG TABLET.DR PO SCH (10:24)
[2019-11-30] MEDS: POTASSIUM CHLORIDE 10 MEQ TABLET.ER PO SCH (10:25)
[2019-11-30] MEDS: METHOCARBAMOL 500 MG TABLET PO SCH (10:25)
[2019-11-30] MEDS: DOCUSATE SODIUM 100 MG CAPSULE PO SCH (10:28)
[2019-11-30] MEDS: PREGABALIN 50 MG CAPSULE PO SCH (10:30)
[2019-11-30 11:05] VITALS: BP 127/66
== END 2019-11-30 12:15 | disposition home or self-care (01) ==
LOC: ER 21:40 → INTOOBSV 11-29 05:37 → EH 11-29 05:37 → ICU 11-29 06:31
PROVIDERS: ADMIT Anesthesiology; ATTEND Anesthesiology
DX: E11.10 Type 2 diabetes mellitus with ketoacidosis without coma (principal); T38.3X6A Underdosing of insulin and oral hypoglycemic [antidiabetic] drugs, initial encounter; L76.22 Postprocedural hemorrhage of skin and subcutaneous tissue following other procedure; N17.9 Acute kidney failure, unspecified; K21.9 Gastro-esophageal reflux disease without esophagitis; E87.5 Hyperkalemia; G89.18 Other acute postprocedural pain; D72.829 Elevated white blood cell count, unspecified; R11.0 Nausea; T40.4X5A Adverse effect of other synthetic narcotics, initial encounter; Y92.238 Other place in hospital as the place of occurrence of the external cause; I10 Essential (primary) hypertension; E78.5 Hyperlipidemia, unspecified; Z90.49 Acquired absence of other specified parts of digestive tract; Z79.899 Other long term (current) drug therapy; Z98.84 Bariatric surgery status; Z88.5 Allergy status to narcotic agent
CPT/HCPCS: 99239; 99291 ×2; 93005; 99292; 96361; 96374; 86900; 86901; 36415 ×2; 86850; 82962 ×2; 82947; 83605; 85025; 85610; 85730; 80048; 80053; 81001; 84484; 82803; 71045; 93010; G0378 ×3; A9270 ×16; J0610; J3010; J3490; J2405; J7042; J7050; J7030; J1815

== ENCOUNTER → 2020-05-25 | Outpatient (CLI) | payer MEDICARE, OTHER ==
[2020-05-25 13:30] LABS: ABSOLUTE EOSINOPHILS # (AUTO) 0.1 10^3/uL (0.0-0.6); ABSOLUTE LYMPHOCYTES (AUTO) 1.3 10^3/uL (0.5-4.7); ABSOLUTE MONOCYTES (AUTO) 0.4 10^3/uL (0.1-1.4); ABSOLUTE NEUT (AUTO) 2.7 10^3/uL (1.7-8.2); BASOPHILS % (AUTO) 0.4 % (0-2); EOSINOPHILS % (AUTO) 1.4 % (0-6); HEMATOCRIT 33.6 % (37.9-51.0); HEMOGLOBIN 10.8 g/dL (13.5-17.0); LYMPHOCYTES % (AUTO) 28.6 % (13-45); MEAN CORPUSCULAR HEMOGLOBIN 23.9 pg (27.0-33.4); MEAN CORPUSCULAR HGB CONC 32.1 g/dL (32.0-36.0); MEAN CORPUSCULAR VOLUME 74 fl (80-97); MONOCYTES % (AUTO) 8.5 % (3-13); PLATELET COUNT 273 10^3/uL (150-450); RED BLOOD COUNT 4.52 10^6/uL (4.35-5.55); RED CELL DISTRIBUTION WIDTH 15.9 % (11.5-14.0); SEGMENTED NEUTROPHILS % (AUTO) 61.1 % (42-78); TOTAL CELLS COUNTED % (AUTO) 100 %; WHITE BLOOD COUNT 4.5 10^3/uL (4.0-10.5)
--- NOTE | 2020-05-25 13:36 | RADIOLOGY REPORT (SQ) ---
EXAM DESCRIPTION: CHEST PA/LATERAL IMAGES COMPLETED DATE/TIME: 05/25/2020 1:07 pm REASON FOR STUDY: PREOP COMPARISON: 11/29/2019 EXAM PARAMETERS: NUMBER OF VIEWS: two views TECHNIQUE: Digital Frontal and Lateral radiographic views of the chest acquired. RADIATION DOSE: NA LIMITATIONS: none FINDINGS: LUNGS AND PLEURA: No opacities, masses or pneumothorax. No pleural effusion. MEDIASTINUM AND HILAR STRUCTURES: No masses or contour abnormalities. HEART AND VASCULAR STRUCTURES: Heart normal size. No evidence for failure. BONES: No acute findings. HARDWARE: None in the chest. OTHER: No other significant finding. IMPRESSION: NO SIGNIFICANT RADIOGRAPHIC FINDING IN THE CHEST. TECHNICAL DOCUMENTATION: JOB ID: [id number] 2010 [employer]- All Rights Reserved Reading location - IP/workstation name: [email or web address]
[2020-05-25 13:49] LABS: APPEARANCE,URINE CLEAR; BILIRUBIN,URINE NEGATIVE (NEGATIVE); COLOR,URINE STRAW; GLUCOSE, URINE 50 mg/dL (NEGATIVE); KETONES,URINE NEGATIVE (NEGATIVE); LEUKOCYTE ESTERASE,URINE NEGATIVE (NEGATIVE); NITRITE,URINE NEGATIVE (NEGATIVE); PROTEIN,URINE NEGATIVE (NEGATIVE); UROBILINOGEN,URINE NEGATIVE mg/dL (<2.0)
[2020-05-25 13:56] LABS: ANION GAP 6 (5-19); BLOOD UREA NITROGEN 25 mg/dL (7-20); CALCIUM 9.5 mg/dL (8.4-10.2); CARBON DIOXIDE 30 mmol/L (22-30); CHLORIDE 101 mmol/L (98-107); GLUCOSE 209 mg/dL (75-110); POTASSIUM 4.8 mmol/L (3.6-5.0)
--- NOTE | 2020-05-25 21:02 | EKG REPORT ---
SEVERITY:- OTHERWISE NORMAL ECG - SINUS BRADYCARDIA LOW VOLTAGE IN FRONTAL LEADS INFERIOR ST SEGEMENT ELEVATION : Confirmed by: Ran Hammond MD 25-May-2020 21:02:05
== END ==
LOC: OD 12:14
PROVIDERS: ATTEND Orthopaedic Surgery
DX: Z01.810 Encounter for preprocedural cardiovascular examination (principal); Z01.811 Encounter for preprocedural respiratory examination; Z01.812 Encounter for preprocedural laboratory examination
CPT/HCPCS: 36415; 71046; 80048; 81001; 85025; 93005; 93010

== ENCOUNTER 2020-06-15 05:23 | Inpatient (IN) | payer MEDICARE, OTHER ==
[~2020-06-15 05:23] MED LIST changes: +BUPIVACAINE INJ/PF LIPOSOME/PF 266 MG/20 ML SDV INJ PRN; +CEFAZOLIN 1 GM/D5W RTU 1 GM/50 ML RTUPB IV ONE; +CEFAZOLIN INJ 1 GM VIAL IV PRN; -CEFAZOLIN SODIUM 2 GM in DEXTROSE 5%-WATER 100 ML IV PRN; +IBUPROFEN 800 MG in NORMAL SALINE 250 ML IV PRN; -NORMAL SALINE 1000 ML 1,000 ML IV PRN; +OXYCODONE HCL SR 10 MG TABLET PO ONE; +OXYCODONE HCL SR 10 MG TABLET PO PRN; +PANTOPRAZOLE SODIUM 20 MG TABLET.DR PO ONE; +PANTOPRAZOLE SODIUM 20 MG TABLET.DR PO PRN; +VANCOMYCIN HCL 1,000 MG in DEXTROSE 5%-WATER 250 ML IV PRN
[2020-06-15] MEDS ORDERED: LIDOCAINE 0.5% INJ-PF (5 MG/ML) 50 ML SDV ONE (06:10)
[2020-06-15] MEDS ORDERED: ONDANSETRON HCL INJ/PF 4 MG/2 ML SDV ONE (06:12)
[2020-06-15] MEDS ORDERED: FENTANYL CITRATE INJ/PF 100 MCG/2 ML AMPUL ONE (06:12)
[2020-06-15] MEDS ORDERED: MIDAZOLAM 2 MG/2 ML INJ ONE (06:12)
[2020-06-15] MEDS ORDERED: TRANEXAMIC ACID INJ/PF 1,000 MG/10 ML SDV ONE (06:12)
[2020-06-15] MEDS ORDERED: PROPOFOL INJ 200 MG/20 ML VIAL IV ONE (06:13)
[2020-06-15] MEDS ORDERED: BUPIVACAINE HCL 0.25% /EPINEPHRINE INJ/PF 30 ML SDV ONE (06:43)
[2020-06-15 06:58] LABS: POTASSIUM 3.7 mmol/L (3.6-5.0)
[2020-06-15] MEDS ORDERED: FENTANYL CITRATE INJ/PF 100 MCG/2 ML AMPUL IV PRN ×3 (07:53)
[2020-06-15] MEDS ORDERED: DIPHENHYDRAMINE HCL 50 MG/ML VIAL IV PRN ×2 (07:53→08:28)
[2020-06-15] MEDS ORDERED: MEPERIDINE HCL/PF INJ 25 MG/1 ML DISP.SYRIN IV PRN (07:53)
[2020-06-15] MEDS ORDERED: ONDANSETRON HCL INJ/PF 4 MG/2 ML SDV IV PRN ×2 (07:53→08:28)
[2020-06-15] MEDS ORDERED: PROMETHAZINE HCL INJ 25 MG/1 ML VIAL IV PRN ×2 (07:53)
--- NOTE | 2020-06-15 08:26 | Operative Report ---
Operative Report DATE OF SURGERY: 06/15/20 PREOPERATIVE DIAGNOSIS: Left knee arthritis OPERATION: Left knee arthroplasty SURGEON: DARIANA LARKIN ANESTHESIA: Spinal TISSUE REMOVED OR ALTERED: Bone to pathology ESTIMATED BLOOD LOSS: 75 PROCEDURE: Implants used: Femur: Светлана triathlon size 5 uncemented CR femur Tibia: 6 uncemented tibia Tibial liner: 9 mm CS insert Patella: 35 mm oval uncemented patella Procedure with the patient supine on the operating table the left the limb is prepped and draped in a sterile fashion. The limb was elevated for exsanguination and the tourniquet inflated to 280 torr. A standard midline median parapatellar approach the knee is taken. Access is gained to the femoral canal through the intercondylar notch. Intramedullary alignment instrumentation used to resect 10 mm of distal femur in 5 of valgus. Sizing guide indicated a size 5 femur. Appropriate cutting jig is then used to fashion anterior posterior and chamfer cuts. A trial reduction femurs performed and this is judged to be adequate. Attention was next turned to the tibia. Using an extra medullary alignment system 9 millimeters was resected off the lateral tibial plateau. This is sized to a size 6 tibia. A trial reduction was now performed with a 5 femur and a 6 tibia using a 9 millimeters spacer. It is full extension and central patellofemoral tracking. The articular surface the patella was next resected using an oscillating saw. All trial implants were removed. The above implants are impacted into position. The tourniquet was deflated hemostasis obtained the wound is then closed in layers using interrupted Vicryl followed by portillo. A sterile compressive dressing was applied and the patient returned to recovery room in satisfactory condition.
[2020-06-15] MEDS ORDERED: MAG HYDROX/AL HYDROX/SIMETH SUSP 30 ML UDCUP PO PRN (08:28)
[2020-06-15] MEDS ORDERED: ACETAMINOPHEN 325 MG TABLET PO PRN (08:28)
[2020-06-15] MEDS ORDERED: ZOLPIDEM TARTRATE 5 MG TABLET PO PRN (08:28)
[2020-06-15] MEDS ORDERED: ONDANSETRON 4 MG TAB.RAPDIS PO PRN (08:28)
[2020-06-15] MEDS ORDERED: RINGERS SOLUTION,LACTATED 1,000 ML IV PRN (08:28)
[2020-06-15] MEDS ORDERED: TRANEXAMIC ACID INJ/PF 1,000 MG/10 ML SDV IV ONE ×2 (09:30→13:00)
[2020-06-15] MEDS ORDERED: METFORMIN HCL 500 MG TABLET PO SCH (10:00)
[2020-06-15] MEDS ORDERED: (PENDING PHARMACY ID) (Diltiazem Hcl [Diltiazem 24hr Er] 120 MG) PO SCH (10:00)
[2020-06-15] MEDS ORDERED: POTASSIUM CHLORIDE PO SCH (10:00)
[2020-06-15] MEDS ORDERED: (PENDING PHARMACY ID) (Pravastatin Sodium [Pravastatin Sodium] 40 MG) PO SCH (10:00)
[2020-06-15] MEDS ORDERED: INSULIN NPH (ISOPHANE), HUMAN 100 UNIT/ML 3 ML INJ SCH (10:00)
--- NOTE | 2020-06-15 10:01 | RADIOLOGY REPORT (SQ) ---
EXAM DESCRIPTION: KNEE LEFT 2 VIEWS IMAGES COMPLETED DATE/TIME: 06/15/2020 9:54 am REASON FOR STUDY: Post OP -Long Cassette in PACU M17.12 UNILATERAL PRIMARY OSTEOARTHRITIS, LEFT KNE E COMPARISON: None. NUMBER OF VIEWS: Two view(s). TECHNIQUE: Digital radiographic images of the left knee post-procedure. LIMITATIONS: None. FINDINGS: BONES: No worrisome or unexpected findings post-procedure. DEVICE: Total knee arthroplasty. SOFT TISSUES: No worrisome findings. Expected postoperative soft tissue changes. IMPRESSION: SATISFACTORY POSTOPERATIVE LEFT KNEE. TECHNICAL DOCUMENTATION: JOB ID: [id number] 2010 [employer]- All Rights Reserved Reading location - IP/workstation name: [email or web address]
[2020-06-15] MEDS ORDERED: DEXTROSE 50%-WATER SYRINGE 25 GM/50 ML DOSE IV PRN (11:30)
[2020-06-15] MEDS ORDERED: DEXTROSE 40% GEL 15 GM TUBE X 2 PO PRN (11:30)
[2020-06-15] MEDS ORDERED: DEXTROSE 40% GEL 15 GM TUBE PO PRN (11:30)
[2020-06-15] MEDS ORDERED: DEXTROSE 50%-WATER SYRINGE 12.5 GM/25 ML DOSE IV PRN (11:30)
[2020-06-15] MEDS ORDERED: GLUCAGON,HUMAN RECOMB 1 MG INJ IM PRN (11:30)
[2020-06-15] MEDS: OXYCODONE HCL IR 5 MG TABLET PO PRN ×2 (12:39→23:41)
[2020-06-15] MEDS: INSULIN LISPRO 100 UNIT/ML 3 ML VIAL SUBCUT SCH ×2 (16:34→21:47)
[2020-06-15] MEDS: PREGABALIN 50 MG CAPSULE PO SCH (17:19)
[2020-06-15] MEDS: SENNOSIDES/DOCUSATE 8.6-50 MG 1 EACH TABLET PO SCH (17:19)
[2020-06-15] MEDS: FENOFIBRATE NANOCRYSTALLIZED 145 MG TABLET PO SCH (17:20)
[2020-06-15] MEDS: IBUPROFEN 800 MG in NORMAL SALINE 250 ML IV SCH (17:20)
[2020-06-15] MEDS: TORSEMIDE 20 MG TABLET PO SCH (17:20)
[2020-06-15] MEDS ORDERED: POTASSIUM CHLORIDE 10 MEQ TABLET.ER PO SCH (18:00)
[2020-06-15] MEDS ORDERED: VANCOMYCIN HCL 1,000 MG in DEXTROSE 5%-WATER 250 ML IV ONE (20:28)
[2020-06-15] MEDS: OXYCODONE HCL SR 10 MG TABLET PO SCH (21:47)
[2020-06-15] MEDS ORDERED: TAMSULOSIN HCL 0.4 MG CAP.SR.24H PO SCH (22:00)
[2020-06-15] MEDS ORDERED: ATORVASTATIN CALCIUM 10 MG TABLET PO SCH (22:00)
[2020-06-16] MEDS: IBUPROFEN 800 MG in NORMAL SALINE 250 ML IV SCH ×3 (02:08→11:40)
[2020-06-16] MEDS ORDERED: PANTOPRAZOLE SODIUM 40 MG TABLET.DR PO SCH (06:00)
[2020-06-16 06:19] LABS: HEMATOCRIT 29.1 % (37.9-51.0); MEAN CORPUSCULAR HEMOGLOBIN 23.8 pg (27.0-33.4); MEAN CORPUSCULAR HGB CONC 31.1 g/dL (32.0-36.0); MEAN CORPUSCULAR VOLUME 77 fl (80-97); PLATELET COUNT 196 10^3/uL (150-450); RED BLOOD COUNT 3.81 10^6/uL (4.35-5.55); RED CELL DISTRIBUTION WIDTH 17.4 % (11.5-14.0); WHITE BLOOD COUNT 7.6 10^3/uL (4.0-10.5)
[2020-06-16 06:27] LABS: ANION GAP 9 (5-19); BLOOD UREA NITROGEN 29 mg/dL (7-20); CALCIUM 8.3 mg/dL (8.4-10.2); CARBON DIOXIDE 24 mmol/L (22-30); CHLORIDE 102 mmol/L (98-107); GLUCOSE 209 mg/dL (75-110); POTASSIUM 4.5 mmol/L (3.6-5.0)
--- NOTE | 2020-06-16 07:24 | PDOC DISCHARGE SUMMARY ---
Impression - Admit/DC Date/PCP Admission Date/Primary Care Provider: 06/15/20 05:23 LILIA GONZALEZ MD Discharge Date: 06/16/20 - Additional Information Resuscitation Status: Full Code Discharge Diet: Regular Discharge Activity: Balance Activity w/Rest, No tub bath Referrals: DARIANA LARKIN MD [ACTIVE STAFF] - 06/30/20 8:15 am Home Medications: Esomeprazole Magnesium [Nexium] 40 mg PO DAILY 12/11/14 Pregabalin [Lyrica 50 mg Capsule] 50 mg PO BID 12/11/14 Torsemide [Demadex 20 mg Tablet] 20 mg PO BID 12/11/14 Clotrimazole-Betamethasone 1 dose TOP DAILY 03/19/15 Fenofibrate Nanocrystallized [Fenofibrate] 145 mg PO DAILY 03/19/15 Potassium Chloride [Klor-Con 10] 10 meq PO DAILY 03/19/15 Lubiprostone [Amitiza 8 Mcg Capsule] 8 mcg PO BID PRN 11/21/19 Pravastatin Sodium 40 mg PO DAILY 11/21/19 Tamsulosin HCl [Flomax] 0.4 mg PO QHS 11/28/19 Diltiazem HCl [Diltiazem ER] 120 mg PO DAILY 11/29/19 Insulin Aspart [Novolog] 0 unit SQ .SLIDING SCALE PRN 11/29/19 Acetaminophen [Tylenol] 325 mg PO DAILYP PRN 06/11/20 Cetirizine HCl [Zyrtec 10 mg Tablet] 10 mg PO DAILY 06/11/20 NPH, Human Insulin Isophane [Humulin N (NPH) Insulin 100 Unit/1 ml 3 ml] 40 unit INJ DAILY 06/11/20 Polyethylene Glycol 3350 [Miralax] 119 gm PO DAILYP PRN 06/11/20 Metformin HCl [Metformin HCl ER] 1,000 mg PO BID 06/15/20 History of Present Illiness History of Present Illness: VAISHALI CHRISTY is a 69 year old male Incomplete 69-year-old white male with progressive left knee pain and functional disability second osteoarthritis. Based admitted for elective left knee arthroplasty. Hospital Course Hospital Course: The patient is admitted through the operating where he undergoes uncomplicated left knee arthroplasty. Is returned to the floor in satisfactory vision. Makes adequate progress with physical therapy ambulating and weightbearing as tolerated basis.Compressive dressing was removed on the first postoperative morning by quocelf. Physical Exam Vital Signs: Temp Pulse Resp BP Pulse Ox 36.6 C 84 18 110/62 95 06/16/20 05:31 06/16/20 05:31 06/16/20 05:31 06/16/20 05:31 06/16/20 05:31 Intake & Output 06/15/20 06/16/20 06/17/20 06:59 06:59 06:59 Intake Total 0 3970 Output Total 2825 Balance 0 1145 Weight 98.2 kg General appearance: PRESENT: no acute distress Respiratory exam: PRESENT: unlabored Cardiovascular exam: PRESENT: RRR Vascular exam: PRESENT: normal capillary refill Results Laboratory Results: WBC 7.6 10^3/uL (4.0-10.5) 06/16/20 05:25 RBC 3.81 10^6/uL (4.35-5.55) L 06/16/20 05:25 Hgb 9.0 g/dL (13.5-17.0) L 06/16/20 05:25 Hct 29.1 % (37.9-51.0) L 06/16/20 05:25 MCV 77 fl (80-97) L 06/16/20 05:25 MCH 23.8 pg (27.0-33.4) L 06/16/20 05:25 MCHC 31.1 g/dL (32.0-36.0) L 06/16/20 05:25 RDW 17.4 % (11.5-14.0) H 06/16/20 05:25 Plt Count 196 10^3/uL (150-450) 06/16/20 05:25 Sodium 134.5 mmol/L (137-145) L 06/16/20 05:25 Potassium 4.5 mmol/L (3.6-5.0) 06/16/20 05:25 Chloride 102 mmol/L (98-107) 06/16/20 05:25 Carbon Dioxide 24 mmol/L (22-30) 06/16/20 05:25 Anion Gap 9 (5-19) 06/16/20 05:25 BUN 29 mg/dL (7-20) H 06/16/20 05:25 Creatinine 1.09 mg/dL (0.52-1.25) 06/16/20 05:25 Est GFR ( Amer) > 60 (>60) 06/16/20 05:25 Est GFR (MDRD) Non-Af > 60 (>60) 06/16/20 05:25 Glucose 209 mg/dL (75-110) H 06/16/20 05:25 POC Glucose 232 mg/dL (70-110) H 06/16/20 05:55 Hemoglobin A1c % 9.6 % (4.7-6.0) H 06/15/20 06:24 Calcium 8.3 mg/dL (8.4-10.2) L 06/16/20 05:25 COVID-19 Source NASOPHARYNGEAL 06/11/20 11:25 COVID-19 (KATHLEEN) NOT DETECTED 06/11/20 11:25 Impressions: Knee X-Ray 06/15/20 08:30 IMPRESSION: SATISFACTORY POSTOPERATIVE LEFT KNEE. Plan Plan of Treatment: Weightbearing as taught ambulation. Home health services and DME to be supplied by physical therapy. Follow-up with Dr. Larkin [facility] for surgery in 2 weeks for staple removal. Stroke Is this a Stroke Patient?: No Stroke Pt being discharged on Anti-thrombolytic therapy?: Yes Acute Heart Failure - Is this a Heart Failure Patient?: No
[2020-06-16] MEDS: INSULIN LISPRO 100 UNIT/ML 3 ML VIAL SUBCUT SCH ×2 (07:54→12:55)
[2020-06-16 08:24] VITALS: BP 156/60
[2020-06-16] MEDS ORDERED: DILTIAZEM HCL 120 MG CAP.SR.24H PO SCH (10:00)
[2020-06-16] MEDS ORDERED: POTASSIUM CHLORIDE 10 MEQ TABLET.ER PO SCH (10:00)
[2020-06-16] MEDS ORDERED: ASPIRIN 81 MG TABLET, ENT COATED PO SCH (10:00)
[2020-06-16] MEDS ORDERED: INSULIN NPH (ISOPHANE), HUMAN 100 UNIT/ML 3 ML SUBCUT SCH (10:00)
[2020-06-16] MEDS ORDERED: PRENATAL VITAMIN W DHA CAPSULE PO SCH (10:00)
[2020-06-16] MEDS: TORSEMIDE 20 MG TABLET PO SCH (10:38)
[2020-06-16] MEDS: PREGABALIN 50 MG CAPSULE PO SCH (10:39)
[2020-06-16] MEDS: FENOFIBRATE NANOCRYSTALLIZED 145 MG TABLET PO SCH (10:40)
[2020-06-16] MEDS: SENNOSIDES/DOCUSATE 8.6-50 MG 1 EACH TABLET PO SCH (10:40)
[2020-06-16] MEDS: OXYCODONE HCL SR 10 MG TABLET PO SCH (10:40)
== END 2020-06-16 13:00 | disposition home health service (06) | DRG 470 ==
LOC: INOR 05:23 → 4W 10:09
PROVIDERS: ADMIT Orthopaedic Surgery; ATTEND Orthopaedic Surgery
PROC: 0SRD0JA Replacement of Left Knee Joint with Synthetic Substitute, Uncemented, Open Approach (ICD-10-PCS; principal; 2020-06-15 07:30)
DX: M17.12 Unilateral primary osteoarthritis, left knee (principal); E11.9 Type 2 diabetes mellitus without complications; K21.9 Gastro-esophageal reflux disease without esophagitis; E78.00 Pure hypercholesterolemia, unspecified; I10 Essential (primary) hypertension; N40.0 Benign prostatic hyperplasia without lower urinary tract symptoms; G62.9 Polyneuropathy, unspecified; G47.30 Sleep apnea, unspecified; Z79.84 Long term (current) use of oral hypoglycemic drugs; Z79.4 Long term (current) use of insulin; Z79.899 Other long term (current) drug therapy; Z20.828 Contact with and (suspected) exposure to other viral communicable diseases
CPT/HCPCS: 01402; 36415; 80048; 82947; 82962; 83036; 84132; 85027; 87635; 88305; 88311; 94799; C1776; C9803; J0690; J1741; J1815; J2250; J2405; J2704; J3010; J3370; J3490; J7050; J7060; J7120